=== PATIENT | male | born 1980 | race Two or more races ===

== ENCOUNTER 2024-07-12 12:28 | Emergency (ER) | payer SELFPAY ==
[2024-07-12 12:44] VITALS: BP 134/88; PULSE 64; TEMP 36.8; O2SAT 98; BMI 26.6
--- NOTE | 2024-07-12 12:49 | CT_ITS ---
The [address] [address] Patient Name: ELENA SALAZAR MRN: [id number] date: 1980 Sex: M Assigned Patient Location: ER Current Patient Location: ER Accession/Order Number: [id number] Exam Date: 07/12/2024 13:15 Report Date: 07/12/2024 13:34 At the request of: ELIZABETH COKER Procedure: CT head/brain wo con CT head/brain wo con, CT cervical spine wo con, 07/12/2024 1:15 PM EST INDICATION: neck/head pain COMPARISON: There is no appropriate prior study for comparison. TECHNIQUE: Axial images of 3 mm are obtained from the base of the skull to vertex completed with Axial images of 2 mm are obtained from base of skull to T2 without contrast. Dose reduction techniques were achieved by using automated exposure control and/or adjustment of mA and/or kV according to patient size and/or use of iterative reconstruction technique. FINDINGS: The cerebral and cerebellar sulci as well as ventricular system are appropriate for age. There is no intracranial mass, mass effect, midline shift, intra or extra-axial fluid collection. No acute territorial infarction or hemorrhage is noted. Lacunar infarct versus enlarged perivascular space in the left basal ganglia is noted. The visualized portions of orbits, mastoid air cells as well as paranasal sinuses are unremarkable. There is no suspicious osteolytic or osteoblastic lesion. No acute fracture or dislocation is noted. Mild multilevel degenerative changes of cervical spine are noted. No significant neuroforaminal narrowing or canal stenosis is noted. CT/CT head/brain wo con IMPRESSION: No acute intracranial process is identified. No acute fracture. Mild degenerative changes in the cervical spine with no significant neuroforaminal narrowing or canal stenosis. Electronically authenticated by: YANIRA JACKSON Date: 07/12/2024 13:34
--- NOTE | 2024-07-12 12:57 | CT_ITS ---
The [address] [address] Patient Name: ELENA SALAZAR MRN: [id number] date: 1980 Sex: M Assigned Patient Location: ER Current Patient Location: ER Accession/Order Number: [id number] Exam Date: 07/12/2024 13:15 Report Date: 07/12/2024 13:34 At the request of: ELIZABETH COKER Procedure: CT cervical spine wo con CT head/brain wo con, CT cervical spine wo con, 07/12/2024 1:15 PM EST INDICATION: neck/head pain COMPARISON: There is no appropriate prior study for comparison. TECHNIQUE: Axial images of 3 mm are obtained from the base of the skull to vertex completed with Axial images of 2 mm are obtained from base of skull to T2 without contrast. Dose reduction techniques were achieved by using automated exposure control and/or adjustment of mA and/or kV according to patient size and/or use of iterative reconstruction technique. FINDINGS: The cerebral and cerebellar sulci as well as ventricular system are appropriate for age. There is no intracranial mass, mass effect, midline shift, intra or extra-axial fluid collection. No acute territorial infarction or hemorrhage is noted. Lacunar infarct versus enlarged perivascular space in the left basal ganglia is noted. The visualized portions of orbits, mastoid air cells as well as paranasal sinuses are unremarkable. There is no suspicious osteolytic or osteoblastic lesion. No acute fracture or dislocation is noted. Mild multilevel degenerative changes of cervical spine are noted. No significant neuroforaminal narrowing or canal stenosis is noted. CT/CT cervical spine wo con IMPRESSION: No acute intracranial process is identified. No acute fracture. Mild degenerative changes in the cervical spine with no significant neuroforaminal narrowing or canal stenosis. Electronically authenticated by: YANIRA JACKSON Date: 07/12/2024 13:34
--- NOTE | 2024-07-12 13:30 | ED_ITS ---
HPI HPI - Neck Pain/Injury General Chief Complaint: Neck Pain/Injury Stated Complaint: NECK PAIN Time Seen by Provider: 07/12/24 12:50 Source: patient Mode of arrival: walk-in Limitations: no limitations History of Present Illness HPI Narrative: Patient is a 43-year-old male who presents to the emergency department for 2- week history of pain in the bilateral paracervical area of the neck. Pain radiates up to the back of the head. 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 He has no pain radiation or numbness or tingling to the extremities. He has been using ibuprofen and IcyHot patches without improvement. He has no history of chronic neck pain or other significant medical problems Related Data Previous Rx's ?Medication ?Instructions ?Recorded ketorolac 10 mg tablet 10 mg PO TID PRN pain #10 tabs 07/12/24 methocarbamol 750 mg tablet 750 mg PO TID PRN pain #20 tabs 07/12/24 methylprednisolone 4 mg tablets in See Rx Instructions .Route 07/12/24 a dose pack (Medrol (Nikos)) .COMPLEX #21 ea Allergies Allergy/AdvReac Type Severity Reaction Status Date / Time No Known Drug Allergies Allergy Verified 07/12/24 12:44 Opioid HPI Opioid Management Most Recent Opioid Data: No Data to Display Review of Systems ROS Constitutional Denies: fever or chills Ears, nose, mouth, and throat Reports: neck pain; Denies: throat pain or nasal congestion Respiratory Denies: shortness of breath Gastrointestinal Denies: nausea or vomiting Musculoskeletal Reports: neck pain; Denies: back pain, extremity pain or extremity swelling Integumentary/Breast Denies: rash Neurological Reports: headache; Denies: numbness in extremities or weakness in extremities Hematologic/Lymphatic Denies: easy bruising or easy bleeding Exam Narrative Exam Narrative: Gen.: Awake, alert, in no distress Head: Normocephalic, atraumatic ENT: Moist mucous membranes, diffuse tenderness of the paraspinal area to the bilateral posterior cervical spine with no midline spinal tenderness. No obvious deformity or step-off. No bony tenderness of the thoracic spine. 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 No focal neurodeficit Psych: Normal mood and affect Neuro: No focal neuro deficit Skin: Warm, dry, intact Constitutional Vital Signs, click to edit/add: Last Vital Signs Temp 98.3 F 07/12/24 12:44 Pulse 64 07/12/24 12:44 Resp 18 07/12/24 12:44 BP 134/88 07/12/24 12:44 Pulse Ox 98 07/12/24 12:44 O2 Del Method Room Air 07/12/24 12:44 Course Vital Signs Vital signs: Vital Signs Temperature 98.3 F 07/12/24 12:44 Pulse Rate 64 07/12/24 12:44 Respiratory Rate 18 07/12/24 12:44 Blood Pressure 134/88 07/12/24 12:44 Pulse Oximetry 98 07/12/24 12:44 Oxygen Delivery Method Room Air 07/12/24 12:44 Temperature 98.3 F 07/12/24 12:44 Pulse Rate 64 07/12/24 12:44 Respiratory Rate 18 07/12/24 12:44 Blood Pressure 134/88 07/12/24 12:44 Pulse Oximetry 98 07/12/24 12:44 Oxygen Delivery Method Room Air 07/12/24 12:44 MDM - Neck Pain/Injury MDM Narrative Medical decision making narrative: CT of the brain and CT of the cervical spine were ordered from the lobby by attending physician, the studies show mild degenerative changes of the cervical spine with no acute process in the head or neck. Patient medicated for pain in the ER and will be discharged home with a muscle relaxant, Medrol Dosepak and NSAID. Follow-up with PCP and return to the ER if symptoms change or worsen. Patient is neurovascularly intact with no focal neurodeficits on discharge. SHARED APC VISIT, PHYSICIAN ATTESTATION: [id number] I performed a substantive part of the MDM during the patient?s E/M visit. I personally evaluated and examined the patient. I personally made or approved the documented management plan and acknowledge its risk of complications. Medical Records Attestation: I reviewed the patient's medical records. Imaging Data CT scan - head: Attestation: I have reviewed the pertinent imaging results. Radiologist's impression: ITS Impressions Head CT 07/12/24 12:49 IMPRESSION: No acute intracranial process is identified. No acute fracture. Mild degenerative changes in the cervical spine with no significant neuroforaminal narrowing or canal stenosis. Electronically authenticated by: YANIRA JACKSON Date: 07/12/2024 13:[address] 07/12/24 12:57 IMPRESSION: No acute intracranial process is identified. No acute fracture. Mild degenerative changes in the cervical spine with no significant neuroforaminal narrowing or canal stenosis. Electronically authenticated by: YANIRA JACKSON Date: 07/12/2024 13:34 Discharge Plan Discharge Chief Complaint: Neck Pain/Injury Clinical Impression: Acute neck pain, Cervical strain Patient Disposition: Home, Self-Care Time of Disposition Decision: 13:40 Condition: Good Prescriptions / Home Meds: New ketorolac 10 mg tablet 10 mg PO TID PRN (Reason: pain) Qty: 10 0RF methocarbamol 750 mg tablet 750 mg PO TID PRN (Reason: pain) Qty: 20 0RF methylprednisolone [Medrol (Nikos)] 4 mg tablets,dose pack See Rx Instructions .ROUTE .COMPLEX Qty: 21 0RF Rx Instructions: Taper as directed Print Language: Luxembourgish Instructions: Cervical Strain (ED), Acute Neck Pain (ED) Referrals: Physician,Non-Staff, MD [Primary Care Provider] - 1 week
[2024-07-12] MEDS: ORPHENADRINE 60 MG/ 2 ML VIAL IM (13:36)
[2024-07-12] MEDS: KETOROLAC TROMETHAMINE 60 MG/2 ML VIAL IM (13:36)
[2024-07-12] MEDS: HYDROCODONE/ACET 5-325 MG TABLET 1 TAB PO (13:37)
== END 2024-07-12 13:44 | disposition home or self-care (01) ==
PROVIDERS: Emergency Provider Emergency Medicine
DX: S16.1XXA Strain of muscle, fascia and tendon at neck level, initial encounter (principal); X58.XXXA Exposure to other specified factors, initial encounter; M54.2 Cervicalgia
CPT/HCPCS: 70450; 72125; 96372; 99284; J1885; J2360

== ENCOUNTER 2025-01-18 09:16 | Emergency (ER) | payer OTHER, SELFPAY ==
[2025-01-18 09:21] VITALS: BP 125/73; PULSE 71; TEMP 36.4; O2SAT 97; BMI 29.1
--- OUTSIDE RECORDS SUMMARY | 2025-01-18 09:27 | XMS_ITS | Patient Health Record ---
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 Role Phone LarissailloMinna Unavailable Reason For Referral No Information Medications Medication SIG (Take, Route, Frequency, Duration) Notes Start Date End Date Status Kenalog 40 MG/ML Suspension Injection 09/21/2021 Active Lidocaine HCl 10 mg/mL (1 %) Solution Injection *Pick strength-form from [employer] for eRX* 09/21/2021 Active Lovaza 1 GM Capsule Oral 09/21/2021 Active dexAMETHasone Sodium Phosphate 4 MG/ML Solution Injection 09/21/2021 Active Social History Social History Additional Details Category Social Info Options Details Migrated Social History Migrated Social History Tobacco Years: Current every day smoker 07/06/2021,Smoking Status: 14 07/06/2021 Plan Of Treatment No Information Insurance Providers Payer Name Payer Address Payer Phone Subscriber Number Group Number Insured Name Patient Relationship to Insured Coverage Start Date Coverage End Date Friday Health Plans [place] [address] [place] [phone] [id number] ELENA SALAZAR Self - patient is the insured
--- OUTSIDE RECORDS SUMMARY | 2025-01-18 09:28 | XMS_ITS | CCD ---
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 Name Role Phone Unavailable Primary Care Provider UnavailTIFFANIE Florez Attending Unavailable Bj Evans III Primary Care Physician [phone] NONE, XXXX Primary Care Physician Unavailab Darshan Hood Attending Unavailable Maria Luz Galicia Attending Unavailable Meño Parnell Attending Unavailable Medications Current Medications Medication Drug Class(es) Dates Sig (Normalized) Sig (Original) cyclobenzaprine hydrochloride 10 mg oral tablet (5 sources) Muscle Relaxant Start: 06-26-2022 take 1 tablet by mouth three times daily as needed for muscle spasms cyclobenzaprine 10 mg Tab 10 mg = 1 tab(s), Oral, TID, PRN for spasm, # 30 tab(s), Refills(s) 0, Pharmacy: [facility], 168, cm, 02/18/24 10:40:00 EDT, Height/Length Dosing, 87.5, kg, 02/18/24 10:40:00 EDT, Weight Dosing Start Date: 02/18/24 Status: Ordered ibuprofen 800 mg oral tablet (1 source) Nonsteroidal Anti-inflammatory Drug Start: 12-31-2020 take 1 tablet by mouth every eight hours as needed for pain ibuprofen (ADVIL;MOTRIN) 800 MG tablet Take 1 tablet by mouth every 8 hours as needed for Pain 30 tablet 1 12/31/2020 Active Start: 12-31-2020 take 1 tablet by daina th every eight hours as needed for pain ibuprofen (ADVIL;MOTRIN) 800 MG tablet Take 1 tablet by mouth every 8 hours as needed for Pain 30 tablet 1 12/31/2020 Active methocarbamol 750 mg oral tablet (1 source) Muscle Relaxant Start: 08-26-2023 End: 09-02-2023 take 1 tablet by mouth three times daily Robaxin-750 oral tablet 750 mg = 1 tab(s), Oral, TID, X 7 day(s), # 21 tab(s), Refills(s) 0, Pharmacy: [facility], 167.6, cm, 08/26/23 8:44:00 EDT, Height/Length Dosing, 84.4, kg, 08/26/23 8:44:00 EDT, Weight Dosing Start Date: 08/26/23 Stop Date: 09/02/23 Status: Ordered methylPREDNISolone 4 mg oral tablet (1 source) Corticosteroid Start: 06-26-2022 End: 07-02-2022 Medrol 4 mg Tab = 1 packet(s), Oral, As Directed, as directed on package labeling, X 6 day(s), # 21 tab(s), Refills(s) 0 Start Date: 06/26/22 Stop Date: 07/02/22 Status: Ordered minoxidil 50 mg/ml topical foam (2 sources) Arteriolar Vasodilator Start: 09-15-2023 minoxidil topical 5% foam 1 zee, Topical, BID, 63 gram, Refill(s) 0, [facility], 167.6, cm, 09/15/23 21:06:00 EDT, Height/Length Dosing, 88.4, kg, 09/15/23 21:06:00 EDT, Weight Dosing Start Date: 09/15/23 Status: Ordered Completed/Discontinued Medications Medication Drug Class(es) Dates Sig (Normalized) Sig (Original) dicyclomine hydrochloride 20 mg oral tablet (4 sources) Anticholinergic Start: 06-27-2011 End: 07-04-2011 take 1 tablet by mouth four times daily Bentyl 20 mg Tab 20 mg = 1 tab(s), Oral, QID, # 28 tab(s), Refills(s) 0 Start Date: 06/27/11 Stop Date: 07/04/11 Status: Ordered naproxen 500 mg oral tablet (8 sources) Nonsteroidal Anti-inflammatory Drug Start: 06-26-2022 take 1 tablet by mouth twice daily naproxen 500 mg Tab 500 mg = 1 tab(s), Oral, BID, Take one tab by mouth two times a day, # 14 tab(s), Refills(s) 0, Pharmacy: [facility], 167.6, cm, 08/26/23 8:44:00 EDT, Height/Length Dosing, 84.4, kg, 08/26/23 8:44:00 EDT, Weight Dosing Start Date: 08/26/23 Status: Ordered Problems Problem Classification Problem Date Documented Da te Episodic/Chronic Other screening for suspected conditions (not mental disorders or infectious disease) (4 sources) No current problems or disability 12-02-2013 Episodic Other skin disorders (1 source) Alopecia areata; Translations: [Alopecia areata, unspecified] Onset: 09-15-2023 Episodic Spondylosis; intervertebral disc disorders; other back problems (1 source) Lumbago with sciatica; Translations: [Lumbago with sciatica, unspecified side] Onset: 06-26-2022 Episodic Sprains and strains (3 sources) Sprain of right ankle; Translations: [Sprain of unspecified ligament of right ankle, initial encounter] Onset: 08-26-2023 Episodic Results Test Name Value Interpretation Reference Range Facility ED Note-Physicianon 02-19-20 ED Note-Physician ED Note-Physician Basic Information Time Seen: Josh PARR, Terrance Nelson. 02/18/2024 10:40 Chief Complaint Pt reports right shoulder pain for 2 days. 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 right elbow pain. denies known POLO. A 43-year-old male reports to the emergency department with complaints of right-sided shoulder pain. Reports has been hurting last couple of days. Reports that he is concerned that his may be overuse from using it at work. Reports that she is right-handed. 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 Reports about right knee pain as well. He states that no known injury. Does not take anything except some Bengay, which has helped his symptoms mildly. History of Present Illness Denies any blood thinners. Denies any other injuries. Review of Systems No other aggravating or relieving factors no other associated symptoms no other prior treatments or complaints. Family: Reviewed and noncontributory Social: lives at home Review of systems negative unless otherwise specified in the HPI. Physical Exam Vitals & Measurements T: 37.2 ?C(Oral) HR: 74(Peripheral) RR: 16 BP: 133/94 SpO2: 95% HT: 168 cm WT: 87.5 kg BMI: 31 General: The patient appears well and in no apparent distress. Patient is resting in chair. Afebrile Skin: Warm, dry, no pallor noted. Head: Normocephalic, atraumatic Neck: No JVD Eye: PERRLA, EOMI ENT: Moist mucus membranes Cardiovascular: Regular rate normal peripheral perfusion. Radial pulses +2 bilaterally Respiratory: No respiratory distress no accessory muscle use no obvious audible wheezing Chest Wall: no deformity Musculoskeletal: Limited range of motion of the right shoulder due to the pain. Tenderness to palpation along the posterior aspect, around the trapezius muscle. Positive empty can sign. GI: No obvious distention soft nontender nondistended no guarding rebounding or rigidity Neurological: A&O moves all extremities equal strength and symmetry Psychiatric: Cooperative and appropriate Medical Decision Making MEDICAL DECISION MAKING Number and Complexity of Problems Differential Diagnosis: [] [facility] Data External documents reviewed: [] My EKG interpretation: [] My CT interpretation: [] My X-ray interpretation: reviewed My Ultrasound interpretation: [] Decision rules/scores evaluated: [] Discussed with: [] Treatment and Disposition ED Course: 43-year-old male reports emergency department with chief complaint of right shoulder injury. Reports that he thinks he may be overusing it while at work. Denies any known injury or trauma to this area. Exam of the patient is relatively benign. Does have positive empty can sign as well as tenderness along the trapezius muscle. Obvious deformity otherwise. No tenderness to palpation of the right elbow. Due to concerns we did do x-rays of these areas. X-rays negative for any acute findings. Discussed likely strain to the patient. Patient started on NSAIDs as well as muscle relaxer. Discussed continue to rest, ice, compress, and elevate your affected joint to relieve inflammation and swelling. You may also take ibuprofen and Tylenol to help with pain. Follow-up with your primary care provider in 3 to 5 days. If symptoms worsen, do not improve, or new symptoms arise please report back to emergency department for further evaluation. The patient was understanding and agreeable to plan moving forward. Shared decision making: [] Code status: [] Assessment/Plan Right shoulder strain (S46.911A: Strain of unspecified muscle, fascia and tendon at shoulder and upper arm level, right arm, initial encounter) Orders: cyclobenzaprine, 10 mg = 1 tab(s), Oral, TID, PRN for spasm, # 30 tab(s), Refills(s) 0, Pharmacy: [facility], 168, cm, 02/18/24 10:40:00 EDT, Height/Length Dosing, 87.5, kg, 02/18/24 10:40:00 EDT, Weight Dosing naproxen, 500 mg = 1 tab(s), Oral, BID, PRN Pain, with food, # 20 tab(s), Refills(s) 0, Pharmacy: [facility], 168, cm, 02/18/24 10:40:00 EDT, Height/Length Dosing, 87.5, kg, 02/18/24 10:40:00 EDT, Weight Dosing XR Elbow 3+ Views Right XR Shoulder Complete Right Disposition Plan Patient Discharge Condition Stable Discharge Disposition To home Discharge Prescription List Prescriptions cyclobenzaprine 10 mg Tab, 10 mg= 1 tab(s), Oral, TID, PRN naproxen 500 mg Tab, 500 mg= 1 tab(s), Oral, BID, PRN Follow-up With When Contact Information Rayray Mendez In 3 days 02/21/2024 EDT [address] [place] [address]: Call [address] for diagnosis based follow up Patient Education Shoulder Pain, [id number] Shoulder Range of Motion Exercises Elastic Bandage and RICE Therapy Attestation Patient seen and evaluated by the physician unit assistant. Attending physician was present in the emergency department and supervised care. This visit was performed by both the physician and an APC. I performed all aspects of the MDM as d (more content not included)... Normal [facility] Comment on above: Result Comment: Elec tronically Signed By: Terrance Moreno PA-C.br\Date and Time Signed: 02/18/24 14:28 EDT\.br\Electronically Co-Signed By: Maria Luz Galicia M.D..br\Date and Time Co-Signed: 02/19/24 07:53 EDT ED Clinical Summaryon 2023 ED Clinical Summary ED Clinical Summary [address] [address] ED Clinical Summary Person Information Name: ELENA SALAZAR [place] Age: 43 Years : 1980 Sex: Male Language: Croatian PCP: NONE, XXXX Marital Status: Visit Id: Visit Reason: Elbow pain-swelling; Shoulder pain-swelling; RIGHT SHOULDER/ELBOW PAIN Speciality: Acuity: 4 Enc Type: Emergency Med Service: Emergency Arrival: 02/18/2024 10:35:11 Discharge: 02/18/2024 12:02:30 LOS: 000 01:27 Checkin: 02/18/2024 10:35:11 Checkout: 02/18/2024 12:02:30 Dispo Type: Home (Routine DC) EVENTS: Event Name Event Status Request Date/Time Start Date/Time Complete Date/Time Arrive Complete 02/18/2024 10:35:11 02/18/2024 10:35:11 02/18/2024 10:35:11 Document Home Meds Request 02/18/2024 10:35:11 Triage Complete 02/18/2024 10:35:11 02/18/2024 10:40:07 02/18/2024 10:40:07 Bed Assign Complete 02/18/2024 10:37:25 02/18/2024 10:37:25 02/18/2024 10:37:25 Dr Exam Complete 02/18/2024 10:37:25 02/18/2024 10:40:36 02/18/2024 10:40:36 RN Exam Complete 02/18/2024 10:37:25 02/18/2024 11:11:20 02/18/2024 11:11:20 Registration Complete 02/18/2024 10:39:30 02/18/2024 10:39:30 02/18/2024 10:39:30 Reg Complete Request 02/18/2024 10:39:30 Reg Bed Request Complete 02/18/2024 10:39:30 02/18/2024 10:39:30 02/18/2024 10:39:30 Registration Complete 02/18/2024 10:40:36 02/18/2024 10:58:09 02/18/2024 10:58:09 Dr Exam Complete 02/18/2024 10:42:02 02/18/2024 10:42:02 02/18/2024 10:42:02 X-Ray Complete 02/18/2024 10:56:24 02/18/2024 11:04:58 02/18/2024 11:19:52 Wet Read Request 02/18/2024 11:19:52 Discharge Complete 02/18/2024 11:52:09 02/18/2024 12:05:43 02/18/2024 12:05:43 Transfer Complete 02/18/2024 12:05:43 02/18/2024 12:05:43 02/18/2024 12:05:43 ADDRESS: [address] [place] [address] [address] [place] [phone] PHYS DOC NOTES: MEDICAL INFORMATION: Prescriptions Given: Medications to Continue Taking That Have Changed [facility], [address] [place], [place] [id number], [phone] START: cyclobenzaprine (cyclobenzaprine 10 mg Tab) 1 Tablets By Mouth 3 times a day as needed for spasm. Refills: 0. START: naproxen (naproxen 500 mg Tab) 1 Tablets By Mouth 2 times a day as needed Pain. with food. Refills: 0. Other Medications START: cyclobenzaprine (cyclobenzaprine 10 mg Tab) 1 Tablets By Mouth 3 times a day as needed Muscle pain. Refills: 0. START: naproxen (naproxen 500 mg Tab) 1 Tablets By Mouth 2 times a day. Take one tab by mouth two times a day. Refills: 0. START: naproxen (naproxen 500 mg Tab) 1 Tablets By Mouth 2 times a day as needed for pain. Refills: 0. Medications to Continue with No Changes Other Medications dicyclomine (Bentyl 20 mg Tab) 1 Tablets By Mouth 4 times a day for 7 Days. Refills: 0. minoxidil topical (minoxidil topical 5% foam) 1 Application Topical 2 times a day. Refills: 0. PATIENT EDUCATION INFORMATION: Instructions: Shoulder Pain, [id number]; Shoulder Range of Motion Exercises; Elastic Bandage and RICE Therapy Follow up: With: Address: When: Rayray Mendez [address] [place] [phone] In 3 days 02/21/2024 Comments: Call Dr for diagnosis based follow up DIAGNOSIS: Right shoulder strain Normal [facility] ED Patient Summaryon ED Patient Summary ED Patient Summary [address] [address] Patient Discharge Instructions Person Information Name: ELENA SALAZAR Age: 43 Years Arrival Date: 02/18/2024 10:35:11 Discharge Diagnosis: Right shoulder strain Primary Care Physician: DIANE, XXXX Provider Information Primary Provider: Maria Luz Galicia M.D. Advanced Associate Director Qa:None The exam and treatment you received in the Emergency Department were for an urgent problem and are not intended as complete care. It is important that you follow up with a doctor, nurse practitioner, or physician?s unit assistant for ongoing care. If your symptoms become worse or you do not improve as expected and you are unable to reach your usual health care provider, you should return to the Emergency Department. We are available 24 hours a day. ELENA SALAZAR has been given the following list of patient education materials, prescriptions and follow-up instructions: Follow-up Instructions: With: Address: When: Rayray Mendez [address] [facility] [address] [place] [address] [phone] In 3 days 02/21/2024 Comments: Call Dr for diagnosis based follow up In the event that this physician does not participate in your insurance network, please consult with your insurance company to find a nearby participating provider. Patient Education Materials: Shoulder Pain, Gary-[id number]-[id number]; Shoulder Range of Motion Exercises; Elastic Bandage and RICE Therapy A MESSAGE TO ALL PATIENTS REGARDING OPIOIDS PRESCRIPTION OPIOIDS: WHAT YOU NEED TO KNOW Prescription opioids can be used to help relieve hqvydpps-ip-umzjrc pain and are often prescribed following a surgery or injury, or for certain health conditions. These medications can be an important part of the treatment but also come with serious risks. It is important to work with your healthcare provider to make sure you are getting the safest, most effective care. WHAT ARE THE RISKS AND SIDE EFFECTS OF OPIOID USE? Prescription opioids carry serious risks of addiction and overdose, especially with prolonged use. An opioid overdose, often marked by slowed breathing, can cause sudden . The use of prescription opioids can have a number of side effects as well, even when taken as directed: ? Tolerance?meaning you might need to take more of the medication for the same pain relief ? Physical dependence?meaning you have symptoms of withdrawal when a medication is stopped ? Increased sensitivity to pain ? Constipation ? Nausea, vomiting, and dry mouth ? Sleepiness and dizziness ? Confusion ? Depression ? Low levels of testosterone that can result in lower sex drive, energy, and strength ? Itching and sweating RISKS ARE GREATER WITH: ? History of drug misuse, substance use disorder, or overdose ? Mental health conditions (such as depression or anxiety) ? Sleep apnea ? Older age (65 years and older) ? Avoid alcohol while taking prescription opioids. Also, unless specifically advised by your health care provider, medications to avoid include: ? Benzodiazepines (such as Xanax or Valium) ? Muscle relaxants (such as Soma or Flexeril) ? Hypnotics (such as Ambien or Lunesta) ? Other prescription opioids KNOW YOUR OPTIONS Talk to your health care provider about ways to manage your pain that don?t involve prescription opioids. Some of these options may actually work better and have fewer risks and side effects. Options may include: ? Pain relievers such as acetaminophen, ibuprofen, and naproxen ? Some medication that are also used for depression or seizures ? Physical therapy and exercise ? Cognitive behavioral therapy, a psychological, goal-directed approach, in which patients learn how to modify physical, behavioral, and emotional triggers of pain and stress. IF YOU ARE PRESCRIBED OPIOIDS FOR PAIN: ? Never take opioids in greater amounts or more often than prescribed. ? Follow up with your primary health care provider. o Work together to create a plan on how to manage your pain. o Talk about ways to help manage your pain that don?t involve prescription opioids. o Talk about any and all concerns and side effects. ? Help prevent misuse and abuse o Never sell or share prescription opioids. o Never use another person?s prescription opioids. ? Store prescription opioids in a secure place and out of reach of others (this may include visitors, children, friends, and family). ? Safely dispose of unused prescription opioids: Find your community drug take-back program or your pharmacy mail-back program, or flush them down the toilet, following guidance from the Food and Drug Administration (www.fda.gov/Drugs/Reso Johnu). ? Visit www.cdc.gov/drugoverdos e to learn about the risks of opioids abuse and overdose. ? If you believe you may be struggling with addiction, tell your health care (more content not included)... Normal [facility] XR Elbow 3+ Views Righton XR Elbow 3+ Views Right Exam Date/Time: 02/18/2024 11:19 EDT Reason for Exam: Pain, Non Traumatic Report IMPRESSION: NO DISPLACED FRACTURE OR ACUTE OSSEOUS PROCESS IDENTIFIED. EXAM: XR Elbow 3+ Views Right DATE: 02/18/2024 11:04 AM CLINICAL HISTORY: Pain, Non Traumatic. COMPARISON: None available. TECHNIQUE: AP, lateral, oblique, and olecranon radiographs of the right elbow were obtained. FINDINGS: Mild calcific tendinosis of the triceps tendon is noted. There is no fracture, sizable joint effusion, significant degenerative changes, dislocation, worrisome bone destruction, radiodense foreign bodies, or other findings of concern identified. Ordering Provider: Terrance Moreno FINAL REPORT Dictated: 02/18/2024 1:40 pm Cam Walker MD Signed (Electronic Signature): 02/18/2024 1:40 pm Signed by: Cam Walker MD Transcribed by: GÓMEZ Technologist: MELISSA, Technical Comments Radiation Dose: Kar in mGy = . DAP = . Normal [facility] XR Shoulder Complete Righton 02-18-2024 XR Shoulder Complete Right Exam Date/Time: 02/18/2024 11:19 EDT Reason for Exam: Pain, Non Traumatic Report IMPRESSION: NEGATIVE RIGHT SHOULDER. EXAM: XR Shoulder Complete Right DATE: 02/18/2024 11:04 AM CLINICAL HISTORY: Pain, Non Traumatic. COMPARISON: None available. TECHNIQUE: AP, internal and external rotation AP, transscapular, and axillary radiographs of the right shoulder were obtained. FINDINGS: There is no fracture, dislocation, acromioclavicular joint separation, significant degenerative changes, narrowing of the subacromial space, pathologic calcifications, or other findings of concern identified. Ordering Provider: Terrance Moreno FINAL REPORT Dictated: 02/18/2024 1:23 pm Cam Walker MD Signed (Electronic Signature): 02/18/2024 1:23 pm Signed by: Cam Walker MD Transcribed by: GÓMEZ Technologist: CC, Technical Comments Radiation Dose: Ka,r in mGy = . DAP = . Normal [facility] ED Note-Physicianon 09-16-19 ED Note-Physician Basic Information Time Seen: Terrance Moreno PA-C. 09/15/2023 21:07 Chief Complaint pt presents with c/o headache. pt states they have had issues sleeping lately and is concerned about hair loss on back of head. History of Present Illness 43-year-old male reports to the emergency department chief complaint of headache. He reports that he has had this headache, and is also very concerned that he is losing hair in the back of his head. He reports is not sure was going on. He denies any allergies. Denies taking any medications. Reports is not the worst of his life. Reports been take to work on medication which does help. Denies any fevers or chills. Denies any visual changes. Review of Systems A 10 point review of systems is negative except as noted above. Medical and Surgical History: Reviewed and noted Social history: Lives at home Family History: Reviewed. Tobacco: Denies Physical Exam Vitals & Measurements T: 36.9 ?C(Oral) HR: 80(Peripheral) RR: 18 BP: 139/93 SpO2: 99% HT: 167.6 cm WT: 88.4 kg BMI: 31.47 General: The patient appears well and in no apparent distress. Patient is resting comfortably in chair. afebrile Skin: Warm, dry, no pallor noted. On the back of the head, there is a area of circular pattern baldness, that approximately 1 cm in diameter. Hair follicles are not able to be seen. Head: Normocephalic, atraumatic Neck: No JVD Eye: PERRLA, EOMI ENT: Moist mucus membranes Cardiovascular: Regular rate normal peripheral perfusion Respiratory: No respiratory distress no accessory muscle use no obvious audible wheezing Chest Wall: no deformity Musculoskeletal: normal ROM, no deformity, no swelling GI: No obvious distention Neurological: A&Ox4. moves all extremities equal strength and symmetry. no focal neurological defects Psychiatric: Cooperative and appropriate Medical Decision Making MEDICAL DECISION MAKING Number and Complexity of Problems Differential Diagnosis: [] [facility] Data External documents reviewed: [] My EKG interpretation: [] My CT interpretation: [] My X-ray interpretation: [] My Ultrasound interpretation: [] Decision rules/scores evaluated: [] Discussed with: [] Treatment and Disposition ED Course: 43-year-old male comes in the emergency department with chief complaint of losing hair. On exam, it appears that he does have alopecia. Loss of hair follicles is noted in a circular pattern. Discussed with the patient was understanding. All complaint of a headache. States is not the worst headache of his life. Was gradual in onset. Is been on for a month. I did offer to do a CT of the head, patient denied. I did not appreciate any focal neurological defects. Discussed you are taking Tylenol and rotating ibuprofen for headache. Discussed return precautions. Follow-up with your primary care provider in 3 to 5 days. If symptoms worsen, do not improve, or new symptoms arise please report back to emergency department for further evaluation. The patient was understanding and agreeable to plan moving forward. Shared decision making: [] Code status: [] Assessment/Plan Alopecia areata (L63.9: Alopecia areata, unspecified) Orders: minoxidil topical, 1 zee, Topical, BID, 63 gram, Refill(s) 0, [facility], 167.6, cm, 09/15/23 21:06:00 EDT, Height/Length Dosing, 88.4, kg, 09/15/23 21:06:00 EDT, Weight Dosing Disposition Plan Patient Discharge Condition Stable Discharge Disposition To home Discharge Prescription List Prescriptions minoxidil topical 5% foam, 1 zee, Topical, BID Follow-up With When Contact Information Daksha CAMPOS In 3 days 09/18/2023 EDT [address] [place] [address]- Business (1) Additional Instructions: Call Dr for diagnosis based follow up Patient Education Alopecia Areata, Adult(Salvadorean) Alopecia Areata, Adult Attestation Patient seen and evaluated by the physician unit assistant. Attending physician was present in the emergency department and supervised care. This visit was performed by both the physician and an APC. I performed all aspects of the MDM as documented. This report was transcribed using voice recognition software. Every effort was made to ensure accuracy, however, inadvertently computerized weigh and charge worker mistakes may be present. Appropriate healthcare PPE was used in evaluating this patient. The patient was placed in a mask. The healthcare provider was wearing mask, gloves, and utilizing proper hand hygiene. All equipment was properly cleansed. I performed a substantive part of the MDM during the patient?s E/M visit. I personally made or approved the documented management plan and acknowledge its risk of complications. (Independent Interpretation) My (EKG/X-Ray/US/CT as applicable) interpretation as above. (Discussion) Management/test interpretation discussed with APC. Problem List/Past Medical History Ongoing denies Hist (more content not included)... Normal [facility] Comment on above: Result Comment: Elec tronically Signed By: Terrance Moreno PA-C\.br\Date and Time Signed: 09/16/23 00:06 EDT\.br\Electronically Co-Signed By: Meño Parnell DO\.br\Date and Time Co-Signed: 09/16/23 00:11 EDT Consent for Treatmenton Consent for Treatment [id number] IFF Normal [facility] Discharge Instructionson Discharge Instructions [id number] TIFF Normal [facility] ED Clinical Summaryon 2023 ED Clinical Summary (Inserted Image. Lizzie ble to display) [place] [id number] ED Clinical Summary Person Information Name: SALAZARELENA [place]anne[place] Age: 43 Years : 1980 Sex: Male Language: Croatian PCP: NONE, XXXX Marital Status: Visit Id: Visit Reason: Headache; HEADACHE Speciality: Acuity: 4 Enc Type: Emergency Med Service: Emergency Arrival: 09/15/2023 20:53:29 Discharge: 09/15/2023 21:51:10 LOS: 000 00:58 Checkin: 09/15/2023 20:53:29 Checkout: 09/15/2023 21:51:10 Dispo Type: Home (Routine DC) EVENTS: Event Name Event Status Request Date/Time Start Date/Time Complete Date/Time Arrive Complete 09/15/2023 20:53:29 09/15/2023 20:53:29 09/15/2023 20:53:29 Document Home Meds Request 09/15/2023 20:53:29 Triage Complete 09/15/2023 20:53:29 09/15/2023 21:06:24 09/15/2023 21:06:24 Registration Complete 09/15/2023 20:56:08 09/15/2023 20:56:08 09/15/2023 20:56:08 Reg Complete Request 09/15/2023 20:56:08 Reg Bed Request Complete 09/15/2023 20:56:08 09/15/2023 20:56:08 09/15/2023 20:56:08 Bed Assign Complete 09/15/2023 21:06:35 09/15/2023 21:06:35 09/15/2023 21:06:35 Dr Exam Complete 09/15/2023 21:06:35 09/15/2023 21:07:49 09/15/2023 21:07:49 RN Exam Complete 09/15/2023 21:06:35 09/15/2023 21:29:57 09/15/2023 21:29:57 Registration Request 09/15/2023 21:07:49 Dr Exam Complete 09/15/2023 21:08:35 09/15/2023 21:08:35 09/15/2023 21:08:35 Discharge Complete 09/15/2023 21:39:39 09/15/2023 21:51:17 09/15/2023 21:51:17 Transfer Complete 09/15/2023 21:51:17 09/15/2023 21:51:17 09/15/2023 21:51:17 ADDRESS: [address] [place] [address] RAD[place]O [place] [id number] PHYS DOC NOTES: MEDICAL INFORMATION: Prescriptions Given: New Medications [facility], [address] [facility] [place], [place] [id number], [phone] minoxidil topical (minoxidil topical 5% foam) 1 Application Topical 2 times a day. Refills: 0. Medications to Continue with No Changes Other Medications cyclobenzaprine (cyclobenzaprine 10 mg Tab) 1 Tablets By Mouth 3 times a day as needed Muscle pain. Refills: 0. dicyclomine (Bentyl 20 mg Tab) 1 Tablets By Mouth 4 times a day for 7 Days. Refills: 0. naproxen (naproxen 500 mg Tab) 1 Tablets By Mouth 2 times a day as needed for pain. Refills: 0. naproxen (naproxen 500 mg Tab) 1 Tablets By Mouth 2 times a day. Take one tab by mouth two times a day. Refills: 0. PATIENT EDUCATION INFORMATION: Instructions: Alopecia Areata, Adult(Salvadorean); Alopecia Areata, Adult Follow up: With: Address: When: Daksha BETH [address] [place], [place] [address] [address] Business (1) In 3 days 09/18/2023 Comments: Call Dr for diagnosis based follow up DIAGNOSIS: Alopecia areata Normal [facility] ED Patient Education Noteon 09-15-2023 ED Patient Education Note Immunology Alopecia areata en los adultos Alopecia Areata, Adult La alopecia areata es lizzie afecci?n que provoca la ca?da del pelo. A lizzie persona con esta afecci?n se le puede caer el pelo en zonas del cuero cabelludo. En algunos casos, la persona puede perder todo el pelo del cuero cabelludo o de la dionte y el cuerpo. Tener esta afecci?n puede ser dif?cil emocionalmente, meseret no es peligrosa. La alopecia areata es lizzie enfermedad autoinmunitaria. Bascom significa que el sistema de defensa del organismo (sistema inmunitario) confunde las partes normales del cuerpo con g?rmenes u otras cosas que pueden causarle enfermedades. Cuando tiene alopecia areata, el sistema inmunitario ataca los fol?culos pilosos. ?Cu?les son las causas? Se desconoce la causa de esta afecci?n. ?Qu? incrementa el riesgo? Es m?s probable que tenga esta afecci?n si presenta: ? Antecedentes familiares de alopecia. ? Antecedentes familiares de otra enfermedad autoinmunitaria, incluidas diabetes tipo?1 y lizzie enfermedad autoinmunitaria tiroidea. ? Eczema, asma y alergias. ? S?ndrome de Down. ?Cu?les son los signos o s?ntomas? El s?ntoma principal de esta afecci?n son parches redondos calvos en el cuero cabelludo. Los parches pueden causar lizzie leve picaz?n. Otros s?ntomas pueden incluir los siguientes: ? Pelo oscuro y corto en los parches calvos que es m?s ancho en las puntas (pelo en signo de exclamaci?n). ? Marcas, manchas willy o l?neas en las u?as de los dedos de la mano o del pie. ? Calvicie y p?rdida del vello corporal. Bascom es poco frecuente. La alopecia areata suele manifestarse en la ni?ez, meseret puede ocurrir a cualquier edad. En algunas personas, el pelo vuelve a crecer y no se vuelve a caer. En otros ni?os, el pelo se puede caer y crecer en ciclos. La p?rdida de pelo puede durar varios a?os. ?C?mo se diagnostica? Esta afecci?n se diagnostica en funci?n de los s?ntomas y los antecedentes familiares. El m?dico tambi?n le revisar? la piel del cuero cabelludo, los dientes y las u?as. El m?dico puede derivarlo a un m?dico especialista en enfermedades capilares o de la piel (dermat?logo). Tambi?n pueden hacerle estudios, que incluyen los siguientes: ? Lizzie prueba de tracci?n capilar. ? An?lisis de sandra u otras pruebas de detecci?n para detectar la presencia de enfermedades autoinmunitarias, janusz trastornos de la tiroides o diabetes. ? Biopsia de la piel para confirmar el diagn?stico. ? Un procedimiento para examinar la piel con un instrumento de aumento con stacey (dermatoscopia). ?C?mo se trata? La alopecia areata no tiene tegan. Los objetivos del tratamiento son promover el nuevo crecimiento del pelo y prevenir la reacci?n excesiva del sistema inmunitario. No hay un ?lashell tratamiento para las todas las personas con alopecia areata. Depender? del tipo de ca?da del pelo y de la gravedad. Trabaje con el m?dico para encontrar el tratamiento m?s adecuado para usted. El tratamiento puede incluir: ? Hacer controles des?dicos para asegurarse de que la afecci?n no est? empeorando. A veces, esto se conoce janusz conducta expectante. ? Usar cremas o comprimidos con corticoesteroides shawn 6 a 8?semanas para detener la reacci?n inmunitaria y para que el pelo vuelva a crecer m?s r?pido. ? Usar otros medicamentos en la piel (medicamentos t?picos) para cambiar la respuesta del sistema inmunitario y ayudar al ciclo del crecimiento del pelo. ? Inyecciones de corticoesteroides. ? Psicoterapia y asesoramiento psicol?gico con un mj de apoyo o un terapeuta si tiene dificultades para lidiar con la ca?da del pelo. Siga estas instrucciones en mendoza casa: Medicamentos ? Aplique las cremas t?picas solamente janusz se lo haya indicado el m?dico. ? Use los medicamentos de venta saul y los recetados solamente janusz se lo haya indicado el m?dico. Instrucciones generales ? Inf?rmese todo lo que pueda sobre mendoza enfermedad. ? Considere usar peluca o productos que yarelis que el pelo luzca con m?s volumen o cubra los parches calvos si se siente a disgusto con mendoza aspecto. ? Busque psicoterapia o asesoramiento psicol?gico si le virginia lidiar con la ca?da del pelo. Pida al m?dico que le recomiende un asesor o un mj de apoyo. ? Concurra a todas las visitas de seguimiento janusz se lo haya indicado el m?dico. Bascom es importante. D?nde buscar m?s informaci?n ? National Alopecia Areata Foundation (Fundaci?n Nacional para la Alopecia Areata): naaf.org Comun?quese con un m?dico si: ? La ca?da del pelo empeora, incluso con tratamiento. ? Aparecen nuevos s?ntomas. ? Tiene problemas emocionales. Solicite ayuda de inmediato si: ? Tiene un empeoramiento repentino de la ca?da del pelo. Resumen ? La alopecia areata es lizzie afecci?n autoinmunitaria que hace que el sistema de defensa del organismo (sistema inmunitario) ataque los fol?culos pilosos. Bascom ocasiona la ca?da del pelo. ? Tener esta afecci?n puede ser dif?cil emocionalmente, meseret no es peligro (more content not included)... Normal [facility] ED Patient Summaryon 024 ED Patient Summary (Inserted Image. Lizzie ble to display) [place] [id number] Patient Discharge Instructions Person Information Name: ELENA SALAZAR Age: 43 Years Arrival Date: 09/15/2023 20:53:29 Discharge Diagnosis: Alopecia areata Primary Care Physician: NONE, XXXX Provider Information Primary Provider: Meño Parnell DO Advanced Associate Director Qa:None The exam and treatment you received in the Emergency Department were for an urgent problem and are not intended as complete care. It is important that you follow up with a doctor, nurse practitioner, or physician?s unit assistant for ongoing care. If your symptoms become worse or you do not improve as expected and you are unable to reach your usual health care provider, you should return to the Emergency Department. We are available 24 hours a day. ELENA SALAZAR has been given the following list of patient education materials, prescriptions and follow-up instructions: Follow-up Instructions: With: Address: When: Daksha CAMPOS [address] [place], [place] [address], [place] [id number] [facility] (1) In 3 days 09/18/2023 Comments: Call Dr for diagnosis based follow up In the event that this physician does not participate in your insurance network, please consult with your insurance company to find a nearby participating provider. Patient Education Materials: Alopecia Areata, Adult(Salvadorean); Alopecia Areata, Adult A MESSAGE TO ALL PATIENTS REGARDING OPIOIDS PRESCRIPTION OPIOIDS: WHAT YOU NEED TO KNOW Prescription opioids can be used to help relieve nagqseww-ye-pdonqf pain and are often prescribed following a surgery or injury, or for certain health conditions. These medications can be an important part of the treatment but also come with serious risks. It is important to work with your healthcare provider to make sure you are getting the safest, most effective care. WHAT ARE THE RISKS AND SIDE EFFECTS OF OPIOID USE? Prescription opioids carry serious risks of addiction and overdose, especially with prolonged use. An opioid overdose, often marked by slowed breathing, can cause sudden . The use of prescription opioids can have a number of side effects as well, even when taken as directed: ? Tolerance?meaning you might need to take more of the medication for the same pain relief ? Physical dependence?meaning you have symptoms of withdrawal when a medication is stopped ? Increased sensitivity to pain ? Constipation ? Nausea, vomiting, and dry mouth ? Sleepiness and dizziness ? Confusion ? Depression ? Low levels of testosterone that can result in lower sex drive, energy, and strength ? Itching and sweating RISKS ARE GREATER WITH: ? History of drug misuse, substance use disorder, or overdose ? Mental health conditions (such as depression or anxiety) ? Sleep apnea ? Older age (65 years and older) ? Avoid alcohol while taking prescription opioids. Also, unless specifically advised by your health care provider, medications to avoid include: ? Benzodiazepines (such as Xanax or Valium) ? Muscle relaxants (such as Soma or Flexeril) ? Hypnotics (such as Ambien or Lunesta) ? Other prescription opioids KNOW YOUR OPTIONS Talk to your health care provider about ways to manage your pain that don?t involve prescription opioids. Some of these options may actually work better and have fewer risks and side effects. Options may include: ? Pain relievers such as acetaminophen, ibuprofen, and naproxen ? Some medication that are also used for depression or seizures ? Physical therapy and exercise ? Cognitive behavioral therapy, a psychological, goal-directed approach, in which patients learn how to modify physical, behavioral, and emotional triggers of pain and stress. IF YOU ARE PRESCRIBED OPIOIDS FOR PAIN: ? Never take opioids in greater amounts or more often than prescribed. ? Follow up with your primary health care provider. o Work together to create a plan on how to manage your pain. o Talk about ways to help manage your pain that don?t involve prescription opioids. o Talk about any and all concerns and side effects. ? Help prevent misuse and abuse o Never sell or share prescription opioids. o Never use another person?s prescription opioids. ? Store prescription opioids in a secure place and out of reach of others (this may include visitors, children, friends, and family). ? Safely dispose of unused prescription opioids: Find your community drug take-back program or your pharmacy mail-back program, or flush them down the toilet, following guidance from the Food and Drug Administration (www.fda.gov/Drugs/Reso urcesForYou). ? Visit www.cdc.gov/drugoverdos e to learn about the risks of opioids abuse and overdose. ? If you believe you may be struggling with addiction, tell your health care professiona (more content not included)... [facility] Consent for Treatmenton 08-14 Consent for Treatment [id number] IFF [facility] Discharge Instructionson Discharge Instructions [id number] TIFF [facility] ED Clinical Summaryon 2023 ED Clinical Summary (Inserted Image. Lizzie ble to display) [place] [id number] ED Clinical Summary Person Information Name: ELENA SALAZAR Maryanne/[facility] Age: 42 Years : 1980 Sex: Male Language: Croatian PCP: Bj Evans III, DO Marital Status: Visit Id: Visit Reason: Groin pain; SHARP PAIN ON THE RIGHT SIDE Speciality: Acuity: 4 Enc Type: Emergency Med Service: Emergency Arrival: 08/26/2023 08:36:53 Discharge: 08/26/2023 09:31:31 LOS: 000 00:55 Checkin: 08/26/2023 08:36:53 Checkout: 08/26/2023 09:31:31 Dispo Type: Home (Routine DC) EVENTS: Event Name Event Status Request Date/Time Start Date/Time Complete Date/Time Arrive Complete 08/26/2023 08:36:53 08/26/2023 08:36:53 08/26/2023 08:36:53 Document Home Meds Request 08/26/2023 08:36:53 Triage Complete 08/26/2023 08:36:53 08/26/2023 08:44:17 08/26/2023 08:44:17 Bed Assign Complete 08/26/2023 08:41:30 08/26/2023 08:41:30 08/26/2023 08:41:30 Dr Exam Complete 08/26/2023 08:41:30 08/26/2023 08:43:30 08/26/2023 08:43:30 RN Exam Complete 08/26/2023 08:41:30 08/26/2023 08:45:39 08/26/2023 08:45:39 Registration Complete 08/26/2023 08:41:35 08/26/2023 08:41:35 08/26/2023 08:41:35 Reg Complete Request 08/26/2023 08:41:35 Reg Bed Request Complete 08/26/2023 08:41:35 08/26/2023 08:41:35 08/26/2023 08:41:35 Registration Complete 08/26/2023 08:43:30 08/26/2023 08:45:03 08/26/2023 08:45:03 Dr Exam Complete 08/26/2023 08:54:38 08/26/2023 08:54:38 08/26/2023 08:54:38 Registration Request 08/26/2023 08:54:38 X-Ray Complete 08/26/2023 08:56:10 08/26/2023 08:59:49 08/26/2023 09:11:34 Wet Read Complete 08/26/2023 09:11:34 08/26/2023 09:14:39 08/26/2023 09:14:39 Discharge Complete 08/26/2023 09:23:38 08/26/2023 09:31:37 08/26/2023 09:31:37 Transfer Complete 08/26/2023 09:31:37 08/26/2023 09:31:37 08/26/2023 09:31:37 ADDRESS: [address] [place] [address] RAD[place] [id number] PHYS DOC NOTES: MEDICAL INFORMATION: Prescriptions Given: New Medications [facility] 1985, [address] [facility] [place], [place] [id number], [phone] methocarbamol (Robaxin-750 oral tablet) 1 Tablets By Mouth 3 times a day for 7 Days. Refills: 0. Medications to Continue Taking That Have Changed [facility], [address] [facility] [place], [place] [id number], [phone] START: naproxen (naproxen 500 mg Tab) 1 Tablets By Mouth 2 times a day. Take one tab by mouth two times a day. Refills: 0. Other Medications START: naproxen (naproxen 500 mg Tab) 1 Tablets By Mouth 2 times a day as needed for pain. Refills: 0. Medications to Continue with No Changes Other Medications cyclobenzaprine (cyclobenzaprine 10 mg Tab) 1 Tablets By Mouth 3 times a day as needed Muscle pain. Refills: 0. dicyclomine (Bentyl 20 mg Tab) 1 Tablets By Mouth 4 times a day for 7 Days. Refills: 0. PATIENT EDUCATION INFORMATION: Instructions: Muscle Strain(Salvadorean) Follow up: With: Address: When: Bj Evans [address] [place] [address], [facility], [place] [address] Business (8) In 3 days DIAGNOSIS: Strain of right groin Normal [facility] ED Note-Physicianon 08-26-19 ED Note-Physician Basic Information Time Seen: Darshan Woodson DO 08/26/2023 08:43 Chief Complaint patient c/o right groin pain that started two days when he slipped and fell. denies landing on anything. describes it as pulling pain History of Present Illness 42 year old male presents to the emergency department with chief complaint of right groin pain. Patient reports he slipped and fell on Friday walking out of his trailer. Patient denies hitting head or LOC. Patient reports persistent right groin pain since. He denies any swelling, bulging, or wound to right groin. He denies any trouble with urination or scrotal swelling. He denies any previous injuries to the area. Patient denies any further concerns for today's visit. He thinks he strained his muscle when he fell. No other aggravating or relieving factors no other associated symptoms no other prior treatments or complaints. Family: Reviewed and noncontributory Social: lives at home Review of systems negative unless otherwise specified in the HPI. Physical Exam Vitals & Measurements T: 36.6 ?C(Oral) HR: 76(Peripheral) RR: 18 BP: 117/71 SpO2: 99% HT: 167.64 cm WT: 84.4 kg BMI: 30.03 Nurses notes and vital signs reviewed and patient is not hypoxic. General: The patient appears well. Patient is resting comfortably on the exam bed. Skin: Warm, dry, no pallor noted. No bruising noted. Head: Atraumatic. Neck: No JVD. Eye: Normal conjunctiva. Ears, Nose, Mouth, and Throat: Moist mucous membranes Cardiovascular: Strong distal pulses. Chest wall: Respiratory: Respirations are nonlabored. Back: Normal range of motion. Musculoskeletal: Normal ROM with no gross deformity. Pain on palpation to right upper inner thigh along the musculature no erythema, ecchymosis, or swelling present on exam. Gastrointestinal: Soft and nontender. Urological: No testicular tenderness or mass. Neurological: Awake and alert. No focal deficits. Follows commands. GCS 15. Psychiatric: Cooperative. Medical Decision Making X-rays reveal no obvious fracture or additional pathology. Patient is discharged home on naproxen Robaxin given a note for work and follow-up in the outpatient setting return to ER symptoms should change or worsen. I, Dr. Woodson had a qyyu-tg-xkhd interaction with the patient. I personally performed a physical exam and medical decision making. I have verified the documentation by the student as accurately representing the information obtained. Assessment/Plan Strain of right groin (S76.211A: Strain of adductor muscle, fascia and tendon of right thigh, initial encounter) Orders: methocarbamol, 750 mg = 1 tab(s), Oral, TID, X 7 day(s), # 21 tab(s), Refills(s) 0, Pharmacy: [facility], 167.6, cm, 08/26/23 8:44:00 EDT, Height/Length Dosing, 84.4, kg, 08/26/23 8:44:00 EDT, Weight Dosing naproxen, 500 mg = 1 tab(s), Oral, BID, Take one tab by mouth two times a day, # 14 tab(s), Refills(s) 0, Pharmacy: [facility] 1985, 167.6, cm, 08/26/23 8:44:00 EDT, Height/Length Dosing, 84.4, kg, 08/26/23 8:44:00 EDT, Weight Dosing XR Hip 2-3 Views Right + Pelvis Disposition Plan Discharge Prescription List Prescriptions naproxen 500 mg Tab, 500 mg= 1 tab(s), Oral, BID Robaxin-750 oral tablet, 750 mg= 1 tab(s), Oral, TID Follow-up With When Contact Information Bjrudi Evans In 3 days [address] [facility] [place] [address] [facility] (1) Additional Instructions: Patient Education Muscle Strain(Salvadorean) Problem List/Past Medical History Ongoing denies Historical No qualifying data Medications Inpatient No active inpatient medications Home Bentyl 20 mg Tab, 20 mg= 1 tab(s), Oral, QID cyclobenzaprine 10 mg Tab, 10 mg= 1 tab(s), Oral, TID, PRN naproxen 500 mg Tab, 500 mg= 1 tab(s), Oral, BID, PRN Allergies No Known Allergies Social History Alcohol - Denies Alcohol Use, 06/26/2022 Substance Abuse - Denies Substance Abuse, 06/26/2022 Tobacco - Denies Tobacco Use, 06/26/2022 Lab Results No qualifying data available. Diagnostic Results XR Hip 2-3 Views Right + Pelvis * Preliminary * 08/26/23 09:22:25 NEGATIVE: No infiltrate, mass or other acute cardiopulmonary abnormality Read By: Darshan Woodson DO Normal [facility] Comment on above: Result Comment: Elec tronically Signed By: Darshan Woodson DO\.br\Date and Time Signed: 08/26/23 09:27 EDT ED Patient Education Noteon 08-26-2023 ED Patient Education Note Orthopedics Distensi?n muscular Muscle Strain Lizzie distensi?n muscular es lizzie lesi?n que se produce cuando un m?sculo se estira m?s all? de mendoza dulce normal. Cuando esto sucede, por lo general, se desgarra lizzie henry?a cantidad de fibras musculares. Hay johnson tipos de distensiones musculares. Las distensiones de primer daniel son aquellas en las cuales el desgarro afecta a la maikel cantidad de fibras musculares y las menos dolorosas. Las distensiones de mell y tercer daniel involucran lizzie proporci?n cada vez mayor de desgarro y dolor. En general, la recuperaci?n de lizzie distensi?n muscular tarda de 1 a 2?semanas. La recuperaci?n completa normalmente tarda de 5 a 6?semanas. ?Cu?les son las causas? Esta afecci?n ocurre cuando se aplica lizzie fuerza violenta y s?jessica sobre un m?sculo y harry se estira demasiado. Bascom puede ocurrir shawn lizzie ca?da, cuando se levantan objetos o cuando se practican deportes. ?Qu? incrementa el riesgo? Es m?s probable que esta afecci?n se manifieste en atletas y personas f?sicamente activas. ?Cu?les son los signos o s?ntomas? Los s?ntomas de esta afecci?n incluyen: ? Dolor. ? Sensibilidad. ? Moretones. ? Hinchaz?n. ? Dificultad cuando se usa el m?sculo. ?C?mo se diagnostica? Esta afecci?n se diagnostica en funci?n de un examen f?sico y de los antecedentes m?dicos. Tambi?n se pueden hacer estudios janusz radiograf?a, ecograf?a o resonancia magn?maricarmen (RM). ?C?mo se trata? Inicialmente, se trata con terapia GUILLERMO (protecci?n, reposo, hielo, compresi?n, elevaci?n). Esta terapia incluye lo siguiente: ? Proteger al m?sculo de nuevas lesiones. ? Reposo del m?sculo lesionado. ? Aplicaci?n de hielo en el m?sculo lesionado. ? Aplicaci?n de presi?n (compresi?n) en el m?sculo lesionado. Bascom se puede hacer con lizzie f?lissa o lizzie venda el?stica. ? Elevaci?n del m?sculo lesionado. El m?dico tambi?n puede recomendarle analg?sicos. Siga estas indicaciones en mendoza casa: Si tiene lizzie f?lissa extra?ble: ? Use la f?lissa janusz se lo haya indicado el m?dico. Qu?tesela solamente janusz se lo haya indicado el m?dico. ? Controle todos los d?as la piel alrededor de la f?lissa. Informe al m?dico acerca de cualquier inquietud. ? Afloje la f?lissa si los dedos de las nils o de los pies se le entumecen, siente hormigueos o se le enfr?an y se tornan de color medhat. ? Mantenga la f?lissa limpia. ? Si la f?lissa no es impermeable: ? No deje que se moje. ? C?brala con un envoltorio herm?parisa cuando tome un ba?o de inmersi?n o lizzie ducha. Control del dolor, la rigidez y la hinchaz?n ? Si se lo indican, aplique hielo sobre la tawanda de la lesi?n. Para hacer esto: ? Si tiene lizzie f?lissa desmontable, qu?tesela janusz se lo haya indicado el m?dico. ? Ponga el hielo en lizzie bolsa pl?stica. ? Coloque lizzie toalla entre la piel y la bolsa. ? Aplique el hielo shawn 20?minutos, 2 o 3?veces por d?a. ? Retire el hielo si la piel se pone de color mark brillante. Bascom es muy importante. Si no puede sentir dolor, calor o fr?o, tiene un mayor riesgo de que se da?e la tawanda. ? Mueva los dedos de las nils o de los pies con frecuencia para reducir la rigidez y la hinchaz?n. ? Cuando est? sentado o acostado, alce (eleve) la tawanda de la lesi?n por encima del nivel del coraz?n. ? Use lizzie venda el?stica janusz se lo haya indicado el m?dico. Aseg?rese de no ajustarla demasiado. Indicaciones generales ? Use los medicamentos de venta saul y los recetados solamente janusz se lo haya indicado el m?dico. El tratamiento puede incluir relajantes musculares o medicamentos para el dolor y la inflamaci?n que se maru por boca o que se aplican sobre la piel. ? Restrinja las actividades y andrew reposo del m?sculo lesionado janusz se lo haya indicado el m?dico. Posiblemente le permitan hacer movimientos suaves. ? Si le indicaron fisioterapia, andrew los ejercicios janusz se lo haya indicado el m?dico. ? No ejerza presi?n en ninguna parte de la f?lissa hasta que se haya endurecido por completo. Bascom puede tardar varias horas. ? No consuma brenden?n producto que contenga nicotina o tabaco. Estos productos incluyen cigarrillos, tabaco para mascar y aparatos de vapeo, janusz los cigarrillos electr?nicos. Si necesita ayuda para dejar de consumir estos productos, consulte al m?dico. ? Preg?ntele al m?dico cu?ndo puede volver a conducir si tiene lizzie f?lissa. ? Concurra a todas las visitas de seguimiento. Bascom es importante. ?C?mo se matt? Precaliente antes de la actividad f?gurpreet. Bascom ayuda a prevenir futuras distensiones musculares. Comun?quese con un m?dico si: ? Siente m?s dolor o tiene m?s hinchaz?n en la tawanda lesionada. Solicite ayuda de inmediato si: ? Tiene adormecimiento u hormigueo en la tawanda lesionada. ? Nota lizzie p?rdida importante de fuerza en la tawanda lesionada. Resumen ? Lizzie distensi?n muscular es lizzie lesi?n que se produce cuando un m?sculo se estira m?s all? de mendoza dulce normal. ? Esta afecci?n ocurre cuando se aplica lizzie fuerza (more content not included)... Normal [facility] ED Patient Summaryon 024 ED Patient Summary (Inserted Image. Lizzie ble to display) [place] [id number] Patient Discharge Instructions Person Information Name: ELENA SALAZAR Age: 42 Years Arrival Date: 08/26/2023 08:36:53 Discharge Diagnosis: Strain of right groin Primary Care Physician: Bj Evans III, DO Provider Information Primary Provider: Darshan Woodson DO Advanced Associate Director Qa:None The exam and treatment you received in the Emergency Department were for an urgent problem and are not intended as complete care. It is important that you follow up with a doctor, nurse practitioner, or physician?s unit assistant for ongoing care. If your symptoms become worse or you do not improve as expected and you are unable to reach your usual health care provider, you should return to the Emergency Department. We are available 24 hours a day. SALAZAR ELENA Leslie has been given the following list of patient education materials, prescriptions and follow-up instructions: Follow-up Instructions: With: Address: When: Bj Evans [address] [place] [address], [facility] [place] [address] Business (1) In 3 days In the event that this physician does not participate in your insurance network, please consult with your insurance company to find a nearby participating provider. Patient Education Materials: Muscle Strain(Salvadorean) A MESSAGE TO ALL PATIENTS REGARDING OPIOIDS PRESCRIPTION OPIOIDS: WHAT YOU NEED TO KNOW Prescription opioids can be used to help relieve iqttyuxx-jr-liabmm pain and are often prescribed following a surgery or injury, or for certain health conditions. These medications can be an important part of the treatment but also come with serious risks. It is important to work with your healthcare provider to make sure you are getting the safest, most effective care. WHAT ARE THE RISKS AND SIDE EFFECTS OF OPIOID USE? Prescription opioids carry serious risks of addiction and overdose, especially with prolonged use. An opioid overdose, often marked by slowed breathing, can cause sudden . The use of prescription opioids can have a number of side effects as well, even when taken as directed: ? Tolerance?meaning you might need to take more of the medication for the same pain relief ? Physical dependence?meaning you have symptoms of withdrawal when a medication is stopped ? Increased sensitivity to pain ? Constipation ? Nausea, vomiting, and dry mouth ? Sleepiness and dizziness ? Confusion ? Depression ? Low levels of testosterone that can result in lower sex drive, energy, and strength ? Itching and sweating RISKS ARE GREATER WITH: ? History of drug misuse, substance use disorder, or overdose ? Mental health conditions (such as depression or anxiety) ? Sleep apnea ? Older age (65 years and older) ? Avoid alcohol while taking prescription opioids. Also, unless specifically advised by your health care provider, medications to avoid include: ? Benzodiazepines (such as Xanax or Valium) ? Muscle relaxants (such as Soma or Flexeril) ? Hypnotics (such as Ambien or Lunesta) ? Other prescription opioids KNOW YOUR OPTIONS Talk to your health care provider about ways to manage your pain that don?t involve prescription opioids. Some of these options may actually work better and have fewer risks and side effects. Options may include: ? Pain relievers such as acetaminophen, ibuprofen, and naproxen ? Some medication that are also used for depression or seizures ? Physical therapy and exercise ? Cognitive behavioral therapy, a psychological, goal-directed approach, in which patients learn how to modify physical, behavioral, and emotional triggers of pain and stress. IF YOU ARE PRESCRIBED OPIOIDS FOR PAIN: ? Never take opioids in greater amounts or more often than prescribed. ? Follow up with your primary health care provider. o Work together to create a plan on how to manage your pain. o Talk about ways to help manage your pain that don?t involve prescription opioids. o Talk about any and all concerns and side effects. ? Help prevent misuse and abuse o Never sell or share prescription opioids. o Never use another person?s prescription opioids. ? Store prescription opioids in a secure place and out of reach of others (this may include visitors, children, friends, and family). ? Safely dispose of unused prescription opioids: Find your community drug take-back program or your pharmacy mail-back program, or flush them down the toilet, following guidance from the Food and Drug Administration (www.fda.gov/Drugs/Reso urcesForYou). ? Visit www.cdc.gov/drugoverdos e to learn about the risks of opioids abuse and overdose. ? If you believe you may be struggling with addiction, tell your health care nurse rn and ask for guidance or call [facility] National Helpline at 4-426-246-UCFS. g Source: [place] D (more content not included)... Normal [facility] Prescriptions/Work Noteson 0 08-26-2023 Prescriptions/Work Notes [id number] TIFF Normal [facility] XR Hip 2-3 Views Right + Pel vison 08-26-2023 XR Hip 2-3 Views Right + Pelvis Exam Date/Time: 08/26/2023 09:11 EDT Reason for Exam: Fall Report IMPRESSION: NO DISPLACED FRACTURE OR SIGNIFICANT POSTTRAUMATIC COMPLICATION IDENTIFIED. EXAM: XR Hip 2-3 Views Right + Pelvis DATE: 08/26/2023 8:59 AM CLINICAL HISTORY: Pain after falling a couple of days ago. COMPARISON: None available. TECHNIQUE: An AP view of the pelvis, and AP and lateral radiographs of the right hip were obtained. FINDINGS: There is no displaced fracture, dislocation, pelvic diastases, evidence of significant hematoma, or other acute findings identified. Ordering Provider: Darshan Woodson FINAL REPORT Dictated: 08/26/2023 12:24 pm Cam Walker MD Signed (Electronic Signature): 08/26/2023 12:24 pm Signed by: Cam Walker MD Transcribed by: GÓMEZ Technologist: TUNDE Technical Comments Radiation Dose: Ka,r in mGy = na DAP = na Normal [facility] XR ANKLE RIGHT (MIN 3 VIEWS) on 12-31-2020 XR ANKLE RIGHT (MIN 3 VIEWS) RIGHT ANKLE THREE VIEWS 12/31/2020 COMPARISON: None. HISTORY: Reason for exam:->fall, swollen lateral malleolus. TECHNIQUE: Lateral right ankle pain and swelling status post tripping injury last night. FINDINGS: There is soft tissue swelling at the lateral aspect of the right ankle. No fracture or disruption of the ankle mortise is identified. No osteochondral defect or suspicious osseous lesion. IMPRESSION: Lateral soft tissue swelling. No fracture or disruption of the ankle mortise. Interpreted by: Arthur Montenegro MD Signed by: Arthur Montenegro MD 12/31/20 Final result Normal [facility] Vital Signs Date Time Vital Sign Value Performing Clinician Faci lity 02-18-2024 10:37-0400 Body temperature 98.96 [degF] [facility] 02-18-2024 10:37-0400 Diastolic blood pressure 94 mm[Hg] [facility] 02-18-2024 10:37-0400 Heart rate 74 /min [facility] 02-18-2024 10:37-0400 Respiratory rate 16 /min [facility] 02-18-2024 10:37-0400 SaO2% (BldA) [Mass fraction] 95 % [facility] 02-18-2024 10:37-0400 Systolic blood pressure 133 mm[Hg] [facility] 09-15-2023 21:02-0400 Body temperature 98.42 [degF] Meño Parnell [facility] 09-15-2023 21:02-0400 Diastolic blood pressure 93 mm[Hg] Mayelan Dokken [facility] 09-15-2023 21:02-0400 Heart rate 80 /min Mayelan Dokken [facility] 09-15-2023 21:02-0400 Respiratory rate 18 /min Mayelan Dokken [facility] 09-15-2023 21:02-0400 SaO2% (BldA) [Mass fraction] 99 % Mayelan Dokken [facility] 09-15-2023 21:02-0400 Systolic blood pressure 139 mm[Hg] Mayelan Dokken [facility] 08-26-2023 08:41-0400 Body temperature 97.88 [degF] Darshan Woodson [facility] 08-26-2023 08:41-0400 Diastolic blood pressure 71 mm[Hg] Darshan Woodson [facility] 08-26-2023 08:41-0400 Heart rate 76 /min Darshan Woodson [facility] 08-26-2023 08:41-0400 Respiratory rate 18 /min Darshan Woodson [facility] 08-26-2023 08:41-0400 SaO2% (BldA) [Mass fraction] 99 % Darshan Woodson [facility] 08-26-2023 08:41-0400 Systolic blood pressure 117 mm[Hg] Darshan Billse [facility] 06-26-2022 06:38-0500 Body temperature 97.7 [degF] Blanco Griffith [facility] 06-26-2022 06:38-0500 Diastolic blood pressure 82 mm[Hg] Blanco Griffith [facility] 06-26-2022 06:38-0500 Heart rate 76 /min Blanco Griffith [facility] 06-26-2022 06:38-0500 Respiratory rate 16 /min Blanco Griffith [facility] 06-26-2022 06:38-0500 SaO2% (BldA) [Mass fraction] 98 % Blanco Griffith [facility] 06-26-2022 06:38-0500 Systolic blood pressure 124 mm[Hg] Blanco Griffith [facility] 12-31-2020 10:57-0400 Body height 167.6 cm Tiffanie Miller MD Work Phone: [employer] Work Phone: 12-31-2020 10:57-0400 Body mass index (BMI) [Ratio] 31.23 kg/m2 Tiffanie Miller MD Work Phone: [employer] Work Phone: 12-31-2020 10:57-0400 Body temperature 98.29 [degF] Tiffanie Miller MD Work Phone: [employer] Work Phone: 12-31-2020 10:57-0400 Body weight 87.77 kg Tiffanie Miller MD Work Phone: [employer] Work Phone: 12-31-2020 10:57-0400 Diastolic blood pressure 87 mm[Hg] Tiffanie Miller MD Work Phone: [employer] Work Phone: 12-31-2020 10:57-0400 Heart rate 98 /min Tiffanie Miller MD Work Phone: [employer] Work Phone: 12-31-2020 10:57-0400 Respiratory rate 16 /min Tiffanie Miller MD Work Phone: [employer] Work Phone: 12-31-2020 10:57-0400 SaO2% (BldA) [Mass fraction] 96 % Tiffanie Miller MD Work Phone: [employer] Work Phone: 12-31-2020 10:57-0400 Systolic blood pressure 144 mm[Hg] Tiffanie Miller MD Work Phone: [employer] Work Phone: Encounters Encounter Date Encounter Type Care Provider Facility Start: 02-18-2024 End: 02-18-2024 Emergency department patient visit Karencharmaine Andre Frida [facility] Start: 12-18-2023 ambulatory Darshan Woodson Facility: [facility] Start: 09-15-2023 End: 09-15-2023 Emergency department patient visit Meño Parnell [facility] Start: 08-26-2023 End: 08-26-2023 Emergency department patient visit Darshan Woodson [facility] Start: 06-26-2022 End: 06-26-2022 Emergency department patient visit Blanco Griffith [facility] Start: 12-31-2020 End: 12-31-2020 Emergency department patient visit TIFFANIE MILLER [facility] Start: 12-31-2020 End: 12-31-2020 Emergency department patient visit Tiffanie Miller MD Work Phone: [facility] ED Comment on above: Sprain of right ankl e, unspecified ligament, initial encounter (Primary Dx) Procedures Date Procedure Procedure Detail Performing Clinician Start: 07-18-2021 Radex ankle complete minimum 3 views Tiffanie Miller MD Work Phone: Plan of Treatment Date Care Activity Detail Author Start: 02-14-2021 Influenza vaccination Flu vaccine (# 1) [employer] Phone: Start: 2019 Diabetes screen Diabetes screen [facility] [employer] Phone: Start: 2019 Lipid panel Lipid screen [facility] Work Phone: Start: 08-31-1998 DTaP/Tdap/Td vaccine (1 - Tdap) DTaP/Tdap/Td vaccine (1 - Tdap) [employer] Work Phone: Start: 08-31-1994 HIV screening HIV screen [facility] Work Phone: Start: 1991 COVID-19 Vaccine (1) COVID-19 Vaccin e (1) [employer] Phone: Start: 08-31-1980 Varicella vaccine (1 of 2 - 2-dose childhood series) Varicella vaccine (1 of 2 - 2-dose childhood series) [employer] Phone: Start: 1979 Hepatitis C screening Hepatitis C sc reen [employer] Phone: XR ANKLE RIGHT (MIN 3 VIEWS) XR ANKLE RIGHT (MIN 3 VIEWS) Imaging STAT 12/31/2020 11:43 AM EDT [employer] Work Phone: Payers Date Payer Category Payer Private Health Insurance [id number] 2023 Medicaid [id number] 2023 Self-pay 1980 Unknown [id number] 1979 Unknown [id number] 1979 Unknown [id number] 1979 Unknown [id number] Social History Date Type Detail Facility Start: 12-31-[facility] [employer] Phone: Start: 12-31-2020 Tobacco use and exposure Never used [employer] Start: 12-31-2020 Alcohol intake Lifetime non-d [place] (finding) [employer] Phone: Start: 12-31-2020 History SDOH Alcohol Frequency 1 [employer] Phone: Start: 1980 Sex Assigned At Not on file [facility] [employer] Phone: Exposure to SARS-CoV -2 (event) Not sure [facility] [employer] Tobacco smoking status No Smokin g Status Entered [facility] Sex Assigned At Male [facility] Functional Status Date Assessment Result Facility 02-18-2024 Functional Status N/A [facility] 09-15-2023 Functional Status N/A [facility] 08-26-2023 Functional Status N/A [facility] 06-26-2022 Functional Status N/A [facility] Clinical Notes 06-26-2022 to 02-18-2024 Note Date & Type Note Facility 02-18-2024 Hospital Discharge instructions Patient Education 02/18/2024 12:05:43 Shoulder Pain, Jban-qq-Isnw Shoulder Pain Many things can cause shoulder pain, including: An injury. Moving the shoulder in the same way again and again (overuse). Joint pain (arthritis). Pain can come from: Swelling and irritation (inflammation) of any part of the shoulder. An injury to: ?The shoulder joint. ?Tissues that connect muscle to bone (tendons). ?Tissues that connect bones to each other (ligaments). ?Bones. Follow these instructions at home: Watch for changes in your symptoms. Let your doctor know about them. Follow these instructions to help with your pain. If you have a sling that can be taken off: Wear the sling as told by your doctor. Take it off only as told by your doctor. Check the skin around the sling every day. Tell your doctor if you see problems. Loosen the sling if your fingers: ?Tingle. ?Become numb. ?Become cold. Keep the sling clean. If the sling is not waterproof: ?Do not let it get wet. ?Take the sling off when you shower or bathe. Managing pain, stiffness, and swelling If told, put ice on the painful area. ? Put ice in a plastic bag. ?Place a towel between your skin and the bag. ?Leave the ice on for 20 minutes, 2 3 times a day. Stop putting ice on if it does not help with the pain. ?If your skin turns bright red, take off the ice right away to prevent skin damage. The risk of damage is higher if you cannot feel pain, heat, or cold. Squeeze a soft ball or a foam pad as much as possible. This prevents swelling in the shoulder. It also helps to strengthen the arm. General instructions Take edet-arw-tgvcueq and prescription medicines only as told by your doctor. Keep all follow-up visits. This will help you avoid any type of permanent shoulder problems. Contact a doctor if: Your pain gets worse. Medicine does not help your pain. You have new pain in your arm, hand, or fingers. You loosen your sling and your arm, hand, or fingers: ?Tingle. ?Are numb. ?Are swollen. Get help right away if: Your arm, hand, or fingers turn white or blue. This information is not intended to replace advice given to you by your health care provider. Make sure you discuss any questions you have with your health care provider. Document Revised: 01/03/2023 Document Reviewed: 01/03/2023 [employer] Patient Education 2023 [employer]. 02/18/2024 12:05:43 Shoulder Range of Motion Exercises Shoulder Range of Motion Exercises Shoulder range of motion (ROM) exercises are done to keep the shoulder moving freely or to increase movement. They are recommended for people who have shoulder pain or stiffness or who are recovering from a shoulder surgery. Ask your health care provider which exercises are safe for you. Do exercises exactly as told by your health care provider and adjust them as directed. It is normal to feel mild stretching, pulling, tightness, or discomfort as you do these exercises. Stop right away if you feel sudden pain or your pain gets worse. Do not begin these exercises until told by your health care provider. Phase 1 exercise When you are able, do this exercise 1 2 times a day for 30 60 seconds in each direction, or as directed by your health care provider. Pendulum exercise To do this exercise while sittin.Sit in a chair or at the edge of your bed with your feet flat on the floor. 2.Let your affected arm hang down in front of you over the edge of the bed or chair. 3.Relax your shoulder, arm, and hand. 4.Rock your body so your arm gently swings in small circles. You can also use your unaffected arm to start the motion. 5.Repeat, changing the direction of the circles, swinging your arm left and right, and swinging your arm forward and back. To do this exercise while standin.Stand next to a sturdy chair or table, and hold on to it with your hand on your unaffected side. 2.Bend forward at the waist. 3.Bend your knees slightly. 4.Relax your shoulder, arm, and hand. 5.While keeping your shoulder relaxed, use body motion to swing your arm in small circles. 6.Repeat, changing the direction of the circles, swinging your arm left and right, and swinging your arm forward and back. 7.Between exercises, stand up tall and take a short break to relax your lower back. Phase 2 exercises Do these exercises 1 2 times a day or as told by your health care provider. Hold each stretch for 30 seconds, and repeat 3 times. Do the exercises with one or both arms as instructed by your health care provider. For these exercises, sit at a table with your hand and arm supported by the table. A chair that slides easily or has wheels can be helpful. External rotation 1.Turn your chair so that your affected side is nearest to the table. 2.Place your forearm on the table to your side. Bend your arm to about a 90-degree angle (right angle) at the elbow, and place your hand palm-down on the table. Your elbow should be about 6 inches (15 cm) away from your side. 3.Keeping your arm on the table, lean your body forward. Abduction 1.Turn your chair so that your affected side is nearest to the table. 2.Place your forearm and hand on the table so that your thumb points toward the ceiling and your arm is straight out to your side. 3.Slide your hand out to the side and away from you. 4.To increase the stretch, you can slide your chair away from the table. Flexion: forward stretch 1.Sit facing the table. Place your hand and elbow on the table in front of you. 2.Slide your hand forward and away from you, using your unaffected arm to do the work. 3.To increase the stretch, you can slide your chair backward. Phase 3 exercises Do these exercises 1 2 times a day or as told by your health care provider. Hold each stretch for 30 seconds, and repeat 3 times. Do the exercises with one or both arms as instructed by your health care provider. You will need a cane, a piece of PVC pipe, or a sturdy wooden dowel for the wand exercises. Cross-body stretch: posterior capsule stretch 1.Lift your arm straight out in front of you. 2.Bend your arm in a 90-degree angle (right angle) at the elbow so your forearm moves across your body. 3.Use your other arm to gently pull the elbow across your body, toward your other shoulder. Wall climbs 1.Stand with your affected arm extended out to the side with your hand resting on a door frame. 2.Slide your hand slowly up the door frame. 3.To increase the stretch, step through the door frame. Keep your body upright and do not lean. Flexion To do this exercise while standin.Hold the wand with both of your hands, palms-down. 2.Lift the wand up and over your head, if able. Lift mostly with your affected arm, and use the other arm to help. 3.Push upward with your other arm to gently increase the stretch. To do this exercise while lying down: 1.Lie on your back with your elbows resting on the floor and the wand in both your hands. Your hands will be palm-down, or pointing toward your feet. 2.Lift your hands toward the ceiling, using your unaffected arm to help if needed. 3.Bring your arms overhead as able, using your unaffected arm to help if needed. Internal rotation 1.Stand while holding the wand behind you with both hands. Your unaffected arm should be extended above your head with the arm of the affected side extended behind you at the level of your waist. The wand should be pointing straight up and down as you hold it. 2.Slowly pull the wand up behind your back by straightening the elbow of your unaffected arm and bending the elbow of your affected arm. External rotation 1.Lie on your back with your affected upper arm supported on a small pillow or rolled towel. When you first do this exercise, keep your upper arm close to your body. Over time, bring your arm up to a 90-degree angle (right angle) out to the side. 2.Hold the wand across your stomach and with both hands palm-up. Your elbow on your affected side should be bent at a 90-degree angle. 3.Use your unaffected side to help push your forearm away from you and toward the floor. Keep your elbow on your affected side bent at a 90-degree angle. This information is not intended to replace advice given to you by your health care provider. Make sure you discuss any questions you have with your health care provider. Document Revised: 07/23/2022 Document Reviewed: 07/23/2022 [employer] Patient Education 2023 [employer]. 02/18/2024 12:05:43 Elastic Bandage and RICE Therapy Elastic Bandage and RICE Therapy Elastic bandages come in different shapes and sizes. They generally provide support to your injury and reduce swelling while you are healing, but they can perform different functions. Your health care provider will help you decide what is best for your protection, recovery, or rehabilitation after an injury. The routine care of many injuries includes rest, ice, compression, and elevation (RICE therapy). RICE therapy is often recommended for injuries to soft tissues, such as muscle strain, sprains, bruises, and overuse injuries. It can also be used for some bone injuries. Using RICE therapy can help to relieve pain and lessen swelling. General tips Use the bandage as directed by the maker of the bandage that you are using. Follow instructions on the package that the bandage came in. Do not wrap the bandage too tightly. This may block (cut off) the circulation in the arm or leg in the area below the bandage. ?If part of your body beyond the bandage becomes blue, numb, cold, swollen, or more painful, your bandage is probably too tight. If this occurs, remove your bandage and reapply it more loosely. Remove and reapply an elastic bandage every 3 4 hours or as told by your health care provider. See your health care provider if the bandage seems to be making your problems worse rather than better. Supplies needed: Ice. Plastic bag. Towel. Elastic bandage. Pillow or pillows to raise (elevate) the injured body part. How to care for your injury with RICE therapy Rest Rest your injured area. This may help with the healing process. Rest usually involves limiting your normal activities and not using the injured part of your body. Generally, you can return to your normal activities when your health care provider says it is okay and when you can do them without much discomfort. If you rest the injury too much, it may not heal as well. Some injuries heal better with early movement instead of resting for too long. Talk with your health care provider about how long you should limit your activities and whether you should start yndmx-hy-qoovfy exercises for your injury. Ice If directed, put ice on the injured area. To do this: ?Put ice in a plastic bag. ?Place a towel between your skin and the bag. ?Leave the ice on for 20 minutes, 2 3 times a day. ?Remove the ice if your skin turns bright red. This is very important. If you cannot feel pain, heat, or cold, you have a greater risk of damage to the area. Putting ice on your injury can help to lessen swelling and pain. Do not apply ice directly to your skin. Use ice on as many days as told by your health care provider. Compression Putting pressure (compression) on your injured area with an elastic bandage is part of RICE therapy. Compression can help control swelling, give support, and help with discomfort. Elevation Elevate the injured area above the level of your heart while you are sitting or lying down. Follow these instructions at home: If your symptoms get worse or continue, make a follow-up appointment with your health care provider. Having these problems may mean that you need further evaluation or imaging tests, such as X-rays or an MRI. If you have imaging tests, it is up to you to get the results of your tests. Ask your health care provider, or the department that is doing the tests, when your results will be ready. Return to your normal activities as told by your health care provider. Ask your health care provider what activities are safe for you. Keep all follow-up visits. This is important. Contact a health care provider if: Your pain and swelling continue. Your symptoms are getting worse rather than improving. Get help right away if: You have sudden, severe pain at or below the area of your injury. You have redness or increased swelling around your injury. You have tingling or numbness at or below the area of your injury and it does not improve after you remove the elastic bandage. Summary Elastic bandages provide support to your injury and reduce swelling while you are healing. Your health care provider will help you decide which type of elastic bandage is best for your injury. Do not wrap the bandage too tightly. This may block (cut off) the circulation in the arm or leg in the area below the bandage. Putting pressure (compression) on your injured area with an elastic bandage is part of RICE therapy. RICE therapy includes rest, ice, compression, and elevation. This information is not intended to replace advice given to you by your health care provider. Make sure you discuss any questions you have with your health care provider. Document Revised: 03/22/2021 Document Reviewed: 03/22/2021 [employer] Patient Education 2023 [employer]. Follow Up Care 02/18/2024 10:37:11 With:Rayray Mendez Address: [address] [place] [address] When:02/21/2024 11:52:04 Comments:Call Dr for diagnosis based follow up [facility] 02-18-2024 Note ED Patient Education Note Orthopedics Shoulder Pain Many things can cause shoulder pain, including: ? An injury. ? Moving the shoulder in the same way again and again (overuse). ? Joint pain (arthritis). Pain can come from: ? Swelling and irritation (inflammation) of any part of the shoulder. ? An injury to: ? The shoulder joint. ? Tissues that connect muscle to bone (tendons). ? Tissues that connect bones to each other (ligaments). ? Bones. Follow these instructions at home: Watch for changes in your symptoms. Let your doctor know about them. Follow these instructions to help with your pain. If you have a sling that can be taken off: ? Wear the sling as told by your doctor. Take it off only as told by your doctor. ? Check the skin around the sling every day. Tell your doctor if you see problems. ? Loosen the sling if your fingers: ? Tingle. ? Become numb. ? Become cold. ? Keep the sling clean. ? If the sling is not waterproof: ? Do not let it get wet. ? Take the sling off when you shower or bathe. Managing pain, stiffness, and swelling ? If told, put ice on the painful area. ? Put ice in a plastic bag. ? Place a towel between your skin and the bag. ? Leave the ice on for 20 minutes, 2?3 times a day. Stop putting ice on if it does not help with the pain. ? If your skin turns bright red, take off the ice right away to prevent skin damage. The risk of damage is higher if you cannot feel pain, heat, or cold. ? Squeeze a soft ball or a foam pad as much as possible. This prevents swelling in the shoulder. It also helps to strengthen the arm. General instructions ? Take nron-tlm-immduek and prescription medicines only as told by your doctor. ? Keep all follow-up visits. This will help you avoid any type of permanent shoulder problems. Contact a doctor if: ? Your pain gets worse. ? Medicine does not help your pain. ? You have new pain in your arm, hand, or fingers. ? You loosen your sling and your arm, hand, or fingers: ? Tingle. ? Are numb. ? Are swollen. Get help right away if: ? Your arm, hand, or fingers turn white or blue. This information is not intended to replace advice given to you by your health care provider. Make sure you discuss any questions you have with your health care provider. Document Revised: 01/03/2023 Document Reviewed: 01/03/2023 [employer] Patient Education ? 2023 [employer] Shoulder Range of Motion Exercises Shoulder range of motion (ROM) exercises are done to keep the shoulder moving freely or to increase movement. They are recommended for people who have shoulder pain or stiffness or who are recovering from a shoulder surgery. Ask your health care provider which exercises are safe for you. Do exercises exactly as told by your health care provider and adjust them as directed. It is normal to feel mild stretching, pulling, tightness, or discomfort as you do these exercises. Stop right away if you feel sudden pain or your pain gets worse. Do not begin these exercises until told by your health care provider. Phase 1 exercise When you are able, do this exercise 1?2 times a day for 30?60 seconds in each direction, or as directed by your health care provider. Pendulum exercise To do this exercise while sittin. Sit in a chair or at the edge of your bed with your feet flat on the floor. 2. Let your affected arm hang down in front of you over the edge of the bed or chair. 3. Relax your shoulder, arm, and hand. 4. Rock your body so your arm gently swings in small circles. You can also use your unaffected arm to start the motion. 5. Repeat, changing the direction of the circles, swinging your arm left and right, and swinging your arm forward and back. To do this exercise while standin. Stand next to a sturdy chair or table, and hold on to it with your hand on your unaffected side. 2. Bend forward at the waist. 3. Bend your knees slightly. 4. Relax your shoulder, arm, and hand. 5. While keeping your shoulder relaxed, use body motion to swing your arm in small circles. 6. Repeat, changing the direction of the circles, swinging your arm left and right, and swinging your arm forward and back. 7. Between exercises, stand up tall and take a short break to relax your lower back. Phase 2 exercises Do these exercises 1?2 times a day or as told by your health care provider. Hold each stretch for 30 seconds, and repeat 3 times. Do the exercises with one or both arms as instructed by your health care provider. For these exercises, sit at a table with your hand and arm supported by the table. A chair that slides easily or has wheels can be helpful. External rotation 1. Turn your chair so that your affected side is nearest to the table. 2. Place your forearm on the table to your side. Bend your arm to about a (more content not included)... [facility] 09-15-2023 Hospital Discharge instructions Patient Education 09/15/2023 21:51:17 Alopecia Areata, Adult(Salvadorean) Alopecia areata en los adultos Alopecia Areata, Adult La alopecia areata es lizzie afecci n que provoca la ca da del pelo. A lizzie persona con esta afecci n se le puede caer el pelo en zonas del cuero cabelludo. En algunos casos, la persona puede perder todo el pelo del cuero cabelludo o de la dionte y el cuerpo. Tener esta afecci n puede ser dif cil emocionalmente, meseret no es peligrosa. La alopecia areata es lizzie enfermedad autoinmunitaria. Bascom significa que el sistema de defensa del organismo (sistema inmunitario) confunde las partes normales del cuerpo con g rmenes u otras cosas que pueden causarle enfermedades. Cuando tiene alopecia areata, el sistema inmunitario ataca los fol culos pilosos. Cu les son las causas? Se desconoce la causa de esta afecci n. Qu incrementa el riesgo? Es m s probable que tenga esta afecci n si presenta: Antecedentes familiares de alopecia. Antecedentes familiares de otra enfermedad autoinmunitaria, incluidas diabetes tipo 1 y lizzie enfermedad autoinmunitaria tiroidea. Eczema, asma y alergias. S ndrome de Down. Cu les son los signos o s ntomas? El s ntoma principal de esta afecci n son parches redondos calvos en el cuero cabelludo. Los parches pueden causar lizzie leve picaz n. Otros s ntomas pueden incluir los siguientes: Pelo oscuro y corto en los parches calvos que es m s ancho en las puntas (pelo en signo de exclamaci n). Marcas, manchas willy o l neas en las u as de los dedos de la mano o del pie. Calvicie y p rdida del vello corporal. Bascom es poco frecuente. La alopecia areata suele manifestarse en la ni ez, meseret puede ocurrir a cualquier edad. En algunas personas, el pelo vuelve a crecer y no se vuelve a caer. En otros ni os, el pelo se puede caer y crecer en ciclos. La p rdida de pelo puede durar varios a os. C mo se diagnostica? Esta afecci n se diagnostica en funci n de los s ntomas y los antecedentes familiares. El m dico tambi n le revisar la piel del cuero cabelludo, los dientes y las u as. El m dico puede derivarlo a un m dico especialista en enfermedades capilares o de la piel (dermat logo). Tambi n pueden hacerle estudios, que incluyen los siguientes: Lizzie prueba de tracci n capilar. An lisis de sandra u otras pruebas de detecci n para detectar la presencia de enfermedades autoinmunitarias, janusz trastornos de la tiroides o diabetes. Biopsia de la piel para confirmar el diagn stico. Un procedimiento para examinar la piel con un instrumento de aumento con stacey (dermatoscopia). C mo se trata? La alopecia areata no tiene tegan. Los objetivos del tratamiento son promover el nuevo crecimiento del pelo y prevenir la reacci n excesiva del sistema inmunitario. No hay un lashell tratamiento para las todas las personas con alopecia areata. Depender del tipo de ca da del pelo y de la gravedad. Trabaje con el m dico para encontrar el tratamiento m s adecuado para usted. El tratamiento puede incluir: Hacer controles des dicos para asegurarse de que la afecci n no est empeorando. A veces, esto se conoce janusz conducta expectante. Usar cremas o comprimidos con corticoesteroides shawn 6 a 8 semanas para detener la reacci n inmunitaria y para que el pelo vuelva a crecer m s r pido. Usar otros medicamentos en la piel (medicamentos t picos) para cambiar la respuesta del sistema inmunitario y ayudar al ciclo del crecimiento del pelo. Inyecciones de corticoesteroides. Psicoterapia y asesoramiento psicol gico con un mj de apoyo o un terapeuta si tiene dificultades para lidiar con la ca da del pelo. Siga estas instrucciones en mendoza casa: Medicamentos Aplique las cremas t picas solamente janusz se lo haya indicado el m dico. Use los medicamentos de venta saul y los recetados solamente janusz se lo haya indicado el m dico. Instrucciones generales Inf rmese todo lo que pueda sobre mendoza enfermedad. Considere usar peluca o productos que yarelis que el pelo luzca con m s volumen o cubra los parches calvos si se siente a disgusto con mendoza aspecto. Busque psicoterapia o asesoramiento psicol gico si le virginia lidiar con la ca da del pelo. Pida al m dico que le recomiende un asesor o un mj de apoyo. Concurra a todas las visitas de seguimiento janusz se lo haya indicado el m dico. Bascom es importante. D nde buscar demian s informaci n National Alopecia Areata Foundation (Fundaci n Nacional para la Alopecia Areata): naaf.org Comun quese con un m dico si: La ca da del pelo empeora, incluso con tratamiento. Aparecen nuevos s ntomas. Tiene problemas emocionales. Solicite ayuda de inmediato si: Tiene un empeoramiento repentino de la ca da del pelo. Resumen La alopecia areata es lizzie afecci n autoinmunitaria que hace que el sistema de defensa del organismo (sistema inmunitario) ataque los fol culos pilosos. Bascom ocasiona la ca da del pelo. Tener esta afecci n puede ser dif cil emocionalmente, meseret no es peligrosa. Entre los tratamientos se incluyen controles des dicos para asegurarse de que la afecci n no est empeorando, medicamentos e inyecciones con corticoesteroides. Esta informaci n no tiene janusz fin reemplazar el consejo del m dico. Aseg rese de hacerle al m dico cualquier pregunta que tenga. Document Revised: 09/15/2020 Document Reviewed: 09/15/2020 [employer] Patient Education 2022 [employer]. 09/15/2023 21:51:17 Alopecia Areata, Adult Alopecia Areata, Adult Alopecia areata is a condition that causes hair loss. A person with this condition may lose hair on the scalp in patches. In some cases, a person may lose all the hair on the scalp or all the hair from the face and body. Having this condition can be emotionally difficult, but it is not dangerous. Alopecia areata is an autoimmune disease. This means that your body's defense system (immune system) mistakes normal parts of the body for germs or other things that can make you sick. When you have alopecia areata, the immune system attacks the hair follicles. What are the causes? The cause of this condition is not known. What increases the risk? You are more likely to develop this condition if you have: A family history of alopecia. A family history of another autoimmune disease, including type 1 diabetes and thyroid autoimmune disease. Eczema, asthma, and allergies. Down syndrome. What are the signs or symptoms? The main symptom of this condition is round spots of patchy hair loss on the scalp. The spots may be mildly itchy. Other symptoms include: Short dark hairs in the bald patches that are wider at the top (exclamation point hairs). Dents, white spots, or lines in the fingernails or toenails. Balding and body hair loss. This is rare. Alopecia areata usually develops in childhood, but it can develop at any age. For some people, their hair grows back on its own and hair loss does not happen again. For others, their hair may fall out and grow back in cycles. The hair loss may last many years. How is this diagnosed? This condition is diagnosed based on your symptoms and family history. Your health care provider will also check your scalp skin, teeth, and nails. Your health care provider may refer you to a specialist in hair and skin disorders (geothermal hvac technician). You may also have tests, including: A hair pull test. Blood tests or other screening tests to check for autoimmune diseases, such as thyroid disease or diabetes. Skin biopsy to confirm the diagnosis. A procedure to examine the skin with a lighted magnifying instrument (dermoscopy). How is this treated? There is no cure for alopecia areata. The goals of treatment are to promote the regrowth of hair and prevent the immune system from overreacting. No single treatment is right for all people with alopecia areata. It depends on the type of hair loss you have and how severe it is. Work with your health care provider to find the best treatment for you. Treatment may include: Regular checkups to make sure the condition is not getting worse . This is called watchful waiting. Using steroid creams or pills for 6 8 weeks to stop the immune reaction and help hair to regrow more quickly. Using other medicines on your skin (topical medicines) to change the immune system response and support the hair growth cycle. Steroid injections. Therapy and counseling with a support group or therapist if you are having trouble coping with hair loss. Follow these instructions at home: Medicines Apply topical creams only as told by your health care provider. Take zipe-fcv-mrwfnfy and prescription medicines only as told by your health care provider. General instructions Learn as much as you can about your condition. Consider getting a wig or products to make hair look wilson or to cover bald spots, if you feel uncomfortable with your appearance. Get therapy or counseling if you are having a hard time coping with hair loss. Ask your health care provider to recommend a counselor or support group. Keep all follow-up visits as told by your health care provider. This is important. Where to find more information National Alopecia Areata Foundation: naaf.org Contact a health care provider if: Your hair loss gets worse, even with treatment. You have new symptoms. You are struggling emotionally. Get help right away if: You have a sudden worsening of the hair loss. Summary Alopecia areata is an autoimmune condition that makes your body's defense system (immune system) attack the hair follicles. This causes you to lose hair. Having this condition can be emotionally difficult, but it is not dangerous. Treatments may include regular checkups to make sure that the condition is not getting worse, medicines, and steroid injections. This information is not intended to replace advice given to you by your health care provider. Make sure you discuss any questions you have with your health care provider. Document Revised: 08/15/2020 Document Reviewed: 08/15/2020 [employer] Patient Education 2022 [employer]. Follow Up Care 09/15/2023 20:54:19 With:Daksha CAMPOS Address: [address] [place] [address] [address] [place] [address]- Business (1) When:09/18/2023 21:39:33 Comments:Call Dr for diagnosis based follow up [facility] 08-26-2023 Evaluation + Plan note Extrac jarek from: Title:ED Note Author:Lucinda IRWIN Student, Whitney in C Date:08/26/23 Strain of right groin (S76.2 11A: Strain of adductor muscle, fascia and tendon of right thigh, initial encounter) Orders: methocarbamol, 750 mg = 1 tab(s), Oral, TID, X 7 day(s), # 21 tab(s), Refills(s) 0, Pharmacy: [facility], 167.6, cm, 08/26/23 8:44:00 EDT, Height/Length Dosing, 84.4, kg, 08/26/23 8:44:00 EDT, Weight Dosing naproxen, 500 mg = 1 tab(s), Oral, BID, Take one tab by mouth two times a day, # 14 tab(s), Refills(s) 0, Pharmacy: [facility], 167.6, cm, 08/26/23 8:44:00 EDT, Height/Length Dosing, 84.4, kg, 08/26/23 8:44:00 EDT, Weight Dosing XR Hip 2-3 Views Right + Pelvis [facility]03-12-2024 Hospital Discharge instructions Patient Education 08/26/2023 09:31:38 Muscle Strain(Salvadorean) Distensi n muscular Muscle Strain Lizzie distensi n muscular es lizzie lesi n que se produce cuando un m sculo se estira m s all de mendoza dulce normal. Cuando esto sucede, por lo general, se desgarra lizzie henry a cantidad de fibras musculares.Hay johnson tipos de distensiones musculares. Las distensiones de primer daniel son aquellas en las cuales el desgarro afecta a la maikel cantidad de fibras musculares y las menos dolorosas. Las distensiones de mell y tercer daniel involucran lizzie proporci n cada vez mayor de desgarro y dolor. En general, la recuperaci n de lizzie distensi n muscular tarda de 1 a 2 semanas. La recuperaci n completa normalmente tarda de 5 a 6 semanas. Cu les son las causas? Esta afecci n ocurre cuando se aplica lizzie fuerza violenta y s jessica sobre un m sculo y harry se estira demasiado. Bascom puede ocurrir shawn lizzie ca da, cuando se levantan objetos o cuando se practican deportes. Qu incrementa el riesgo? Es m s probable que esta afecci n se manifieste en atletas y personas f sicamente activas. Cu les son los signos o s ntomas? Los s ntomas de esta afecci n incluyen: Dolor. Sensibilidad. Moretones. Hinchaz n. Dificultad cuando se usa el m sculo. C mo se diagnostica? Esta afecci n se diagnostica en funci n de un examen f sico y de los antecedentes m dicos. Tambi n se pueden hacer estudios janusz radiograf a, ecograf a o resonancia magn maricarmen (RM). C mo se trata? Inicialmente, se trata con terapia GUILLERMO (protecci n, reposo, hielo, compresi n, elevaci n). Esta terapia incluye lo siguiente: Proteger al m sculo de nuevas lesiones. Reposo del m sculo lesionado. Aplicaci n de hielo en el m sculo lesionado. Aplicaci n de presi n (compresi n) en el m sculo lesionado. Bascom se puede hacer con lizzie f lissa o lizzie venda el stica. Elevaci n del m sculo lesionado. El m dico tambi n puede recomendarle analg sicos. Siga estas indicaciones en mendoza casa: Si tiene lizzie f lissa extra ble: Use la f lissa janusz se lo haya indicado el m dico. Qu tesela solamente janusz se lo haya indicado el mdico. Controle todos los d as la piel alrededor de la f lissa. Informe al m dico acerca de cualquier inquietud. Afloje la f lissa si los dedos de las nils o de los pies se le entumecen, siente hormigueos o se leenfr an y se tornan de color medhat. Mantenga la f lissa limpia. Si la f lissa no es impermeable: ?No deje que se moje. ?C brala con un envoltorio herm parisa cuando tome un ba o de inmersi n o lizzie ducha. Control del dolor, la rigidez y la hinchaz n Si se lo indican, aplique hielo sobre la tawanda de la lesi n. Para hacer esto: ?Si tiene lizzie f lissa desmontable, qu tesela janusz se lo haya indicado el m dico. ?Ponga el hielo en lizzie bolsa pl stica. ?Coloque lizzie toalla entre la piel y la bolsa. ?Aplique el hielo shawn 20 minutos, 2 o 3 veces por d a. ?Retire el hielo si la piel se pone de color mark brillante. Bascom es muy importante. Si no puede sentir dolor, calor o fr o, tiene un mayor riesgo de que se da e la tawanda. Mueva los dedos de las nils o de los pies con frecuencia para reducir la rigidez y la hinchaz n. Cuando est sentado o acostado, alce (eleve) la tawanda de la lesi n por encima del nivel del coraz n. Use lizzie venda el stica janusz se lo haya indicado el m dico. Aseg rese de no ajustarla demasiado. Indicaciones generales Use los medicamentos de venta saul y los recetados solamente janusz se lo haya indicado el m dico. El tratamiento puede incluir relajantes musculares o medicamentos para el dolor y la inflamaci n que se maru por boca o que se aplican sobre la piel. Restrinja las actividades y andrew reposo del m sculo lesionado janusz se lo haya indicado el m dico. Posiblemente le permitan hacer movimientos suaves. Si le indicaron fisioterapia, andrew los ejercicios janusz se lo haya indicado el m dico. No ejerza presi n en ninguna parte de la f lissa hasta que se haya endurecido por completo. Bascom puede tardar varias horas. No consuma brenden n producto que contenga nicotina o tabaco. Estos productos incluyen cigarrillos, tabaco para mascar y aparatos de vapeo, janusz los cigarrillos electr nicos. Si necesita ayuda para dejar de consumir estos productos, consulte al m dico. Preg ntele al m dico cu ndo puede volver a conducir si tiene lizzie f lissa. Concurra a todas las visitas de seguimiento. Bascom es importante. C mo se matt? Precaliente antes de la actividad f gurpreet. Bascom ayuda a prevenir futuras distensiones musculares. Comun quese con un m dico si: Siente m s dolor o tiene m s hinchaz n en la tawanda lesionada. Solicite ayuda de inmediato si: Tiene adormecimiento u hormigueo en la tawanda lesionada. Nota lizzie p rdida importante de fuerza en la tawanda lesionada. Resumen Lizzie distensi n muscular es lizzie lesi n que se produce cuando un m sculo se estira m s all de mendoza dulce normal. Esta afecci n ocurre cuando se aplica lizzie fuerza violenta y s jessica sobre un m sculo y harry se estira demasiado. Esta afecci n se trata inicialmente con terapia GUILLERMO, que significa protecci n, reposo, hielo, compresi n y elevaci n. Posiblemente le permitan hacer movimientos suaves. Si le indicaron fisioterapia, andrew los ejercicios janusz se lo haya indicado el m dico. Esta informaci n no tiene janusz fin reemplazar el consejo del m dico. Aseg rese de hacerle al m dicocualquier pregunta que tenga. Document Revised: 09/18/2021 Document Reviewed: 09/18/2021 [employer] Patient Education 2022 [employer]. Follow Up Care 08/26/2023 08:38:52 With:Bj Evans Address: [address] [place] [id number] [address] (1) When:Within 3 Day(s) [facility]01-11-2023 Evaluation + Plan noteExtracted from: Title:ED Note Author:Blanco Griffith DO Date: Acute back pain with sciatic a (M54.40: Lumbago with sciatica, unspecified side) Orders: cyclobenzaprine, 10 mg = 1 tab(s), Oral, TID, PRN Muscle pain, # 15 tab(s), Refills(s) 0 ketorolac, 30 mg = 1 mL, Injection, IntraMuscular, Once, Stop date 06/26/22 7:11:00 EST, STAT, Start date 06/26/22 7:11:00 EST, 06/26/22 7:11:00 EST methylPREDNISolone, = 1 packet(s), Oral, As Directed, as directed on package labeling, X 6 day(s), # 21 tab(s), Refills(s) 0 naproxen, 500 mg = 1 tab(s), Oral, BID, PRN for pain, # 20 tab(s), Refills(s) 0 orphenadrine, 60 mg = 2 mL, Injection, IntraMuscular, Once, Stop date 06/26/22 7:11:00 EST, STAT, Start date 06/26/22 7:11:00 EST, 06/26/22 7:11:[address] Spine Lumbar w/o Contrast [facility]01-11-2023 Hospital Discharge instructions Patient Education 06/26/2022 08:48:56 Back Exercises Back Exercises The following exercises strengthen the muscles that help to support the trunk and back. They also help to keep the lower back flexible. Doing these exercises can help to prevent back pain or lessen existing pain. If you have back pain or discomfort, try doing these exercises 2 3 times each day or as told by your health care provider. As your pain improves, do them once each day, but increase the number of times that you repeat the steps for each exercise (do more repetitions). To prevent the recurrence of back pain, continue to do these exercises once each day or as told by your health care provider. Do exercises exactly as told by your health care provider and adjust them as directed. It is normalto feel mild stretching, pulling, tightness, or discomfort as you do these exercises, but you should stop right away if you feel sudden pain or your pain gets worse. Exercises Single knee to chest Repeat these steps 3 5 times for each le.Lie on your back on a firm bed or the floor with your legs extended. 2.Bring one knee to your chest. Your other leg should stay extended and in contact with the floor. 3.Hold your knee in place by grabbing your knee or thigh with both hands and hold. 4.Pull on your knee until you feel a gentle stretch in your lower back or buttocks. 5.Hold the stretch for 10 30 seconds. 6.Slowly release and straighten your leg. Pelvic tilt Repeat these steps 5 10 times: 1.Lie on your back on a firm bed or the floor with your legs extended. 2.Bend your knees so they are pointing toward the ceiling and your feet are flat on the floor. 3.Tighten your lower abdominal muscles to press your lower back against the floor. This motion willtilt your pelvis so your tailbone points up toward the ceiling instead of pointing to your feet or the floor. 4.With gentle tension and even breathing, hold this position for 5 10 seconds. Cat-cow Repeat these steps until your lower back becomes more flexible: 1.Get into a ocmcy-nhv-dazbq position on a firm surface. Keep your hands under your shoulders, and keep your knees under your hips. You may place padding under your knees for comfort. 2.Let your head hang down toward your chest. Contract your abdominal muscles and point your tailbone toward the floor so your lower back becomes rounded like the back of a cat. 3.Hold this position for 5 seconds. 4.Slowly lift your head, let your abdominal muscles relax and point your tailbone up toward the ceiling so your back forms a sagging arch like the back of a cow. 5.Hold this position for 5 seconds. Press-ups Repeat these steps 5 10 times: 1.Lie on your abdomen (face-down) on the floor. 2.Place your palms near your head, about shoulder-width apart. 3.Keeping your back as relaxed as possible and keeping your hips on the floor, slowly straighten your arms to raise the top half of your body and lift your shoulders. Do not use your back muscles to raise your upper torso. You may adjust the placement of your hands to make yourself more comfortable. 4.Hold this position for 5 seconds while you keep your back relaxed. 5.Slowly return to lying flat on the floor. Bridges Repeat these steps 10 times: 1.Lie on your back on a firm surface. 2.Bend your knees so they are pointing toward the ceiling and your feet are flat on the floor. Yourarms should be flat at your sides, next to your body. 3.Tighten your buttocks muscles and lift your buttocks off the floor until your waist is at almost the same height as your knees. You should feel the muscles working in your buttocks and the back of your thighs. If you do not feel these muscles, slide your feet 1 2 inches farther away from your buttocks. 4.Hold this position for 3 5 seconds. 5.Slowly lower your hips to the starting position, and allow your buttocks muscles to relax completely. If this exercise is too easy, try doing it with your arms crossed over your chest. Abdominal crunches Repeat these steps 5 10 times: 1.Lie on your back on a firm bed or the floor with your legs extended. 2.Bend your knees so they are pointing toward the ceiling and your feet are flat on the floor. 3.Cross your arms over your chest. 4.Tip your chin slightly toward your chest without bending your neck. 5.Tighten your abdominal muscles and slowly raise your trunk (torso) high enough to lift your shoulder blades a tiny bit off the floor. Avoid raising your torso higher than that because it can put too much stress on your low back and does not help to strengthen your abdominal muscles. 6.Slowly return to your starting position. Back lifts Repeat these steps 5 10 times: 1.Lie on your abdomen (face-down) with your arms at your sides, and rest your forehead on the floor. 2.Tighten the muscles in your legs and your buttocks. 3.Slowly lift your chest off the floor while you keep your hips pressed to the floor. Keep the backof your head in line with the curve in your back. Your eyes should be looking at the floor. 4.Hold this position for 3 5 seconds. 5.Slowly return to your starting position. Contact a health care provider if: Your back pain or discomfort gets much worse when you do an exercise. Your worsening back pain or discomfort does not lessen within 2 hours after you exercise. If you have any of these problems, stop doing these exercises right away. Do not do them again unless your health care provider says that you can. Get help right away if: You develop sudden, severe back pain. If this happens, stop doing the exercises right away. Do not do them again unless your health care provider says that you can. This information is not intended to replace advice given to you by your health care provider. Make sure you discuss any questions you have with your health care provider. Document Released: 07/10/2005 Document Revised: 10/07/2019 Document Reviewed: 03/04/2019 [employer] Patient Education 2020 [employer]. 06/26/2022 08:48:56 Acute Pain, Adult Acute Pain, Adult Acute pain is a type of sudden pain that may last for just a few days or for as long as six months.It is often related to an illness, injury, or medical procedure. Acute pain may be mild, moderate, or severe. Pain can make it hard for you to do your normal, daily activities. It can cause anxiety and lead toother problems if it is left untreated. Treatment depends on the cause and severity of your pain. Acute pain usually goes away once your injury has healed or you are no longer ill. Follow these instructions at home: Medicines Take relq-iwh-dcedvbf and prescription medicines only as told by your health care provider. Take the lowest dose of medicine for the shortest amount of time needed to relieve the pain. If you are taking prescription pain medicine: ?Do not stop taking the medicine suddenly. Talk to your health care provider about how and when to discontinue prescription medicine. ?Do not take more pills than told by your health care provider even if your pain is severe. ?Do not take other jwdw-xmq-fysylqr pain medicines in addition to prescription pain medicine unlesstold by your health care provider. ?Ask your health care provider if the medicine requires you to avoid driving or using heavy machinery. ?Ask your health care provider if the medicine can cause constipation. You may need to take these actions to prevent or treat constipation: ?Drink enough fluid to keep your urine pale yellow. ?Eat foods that are high in fiber, such as beans, whole grains, and fresh fruits and vegetables. ?Take dlkv-gnb-srnpggb or prescription medicines. ?Limit foods that are high in fat and processed sugars, such as fried or sweet foods. Managing pain, stiffness, and swelling If directed, put ice on the affected area. To do this: Put ice in a plastic bag. Place a towel between your skin and the bag. Leave the ice on for 20 minutes, 2 3 times a day. If directed, apply heat to the affected area as often as told by your health care provider. Use theheat source that your health care provider recommends, such as a moist heat pack or a heating pad. Place a towel between your skin and the heat source. Leave the heat on for 20 30 minutes. Remove the heat if your skin turns bright red. This is especially important if you are unable to feel pain, heat, or cold. You may have a greater risk of getting burned. Activity Rest as told by your health care provider. Return to your normal activities as told by your health care provider. Ask your health care provider what activities are safe for you. General instructions Check your pain level as told by your health care provider. Ask your health care provider if other strategies such as distraction, relaxation, or physical therapies can help your pain. Keep all follow-up visits as told by your health care provider. This is important. Contact a health care provider if: Your pain is not controlled by medicine. Your pain does not improve or gets worse. You have side effects from pain medicines, such as vomiting or confusion. Get help right away if you: Have severe pain. Have trouble breathing. Lose consciousness. Have chest pain or pressure that lasts for more than a few minutes, or if you have other symptoms along with chest pain, including if you: ?Have pain or discomfort in one or both arms, your back, neck, jaw, or stomach. ?Have shortness of breath. ?Break out in a cold sweat. ?Feel nauseous. ?Become light-headed. These symptoms may represent a serious problem that is an emergency. Do not wait to see if the symptoms will go away. Get medical help right away. Call your local emergency services (911 in the [place] Do not drive yourself to the hospital. Summary Acute pain may be mild, moderate, or severe. It usually goes away once your injury has healed or you are no longer ill. Take qogv-qpy-vzoeezm and prescription medicines only as told by your health care provider. Ask your health care provider if the medicine prescribed to you can cause constipation. Contact a health care provider if your pain is not controlled by medicine. This information is not intended to replace advice given to you by your health care provider. Make sure you discuss any questions you have with your health care provider. Document Released: 06/16/2016 Document Revised: 10/18/2019 Document Reviewed: 10/18/2019 [employer] Patient Education 2020 [employer] Follow Up Care 06/26/2022 06:33:17 With:Bj Evans Address: [address] [place] [address], [facility] [place] [place] [address]- [facility] (1) When:06/29/2022 08:47:45 Comments:Call the office of your primary care doctor to arrange for follow-up within the above-stated timeframe. Follow-up with your primary care doctor about this ED visit. You should review your labs, imaging, and diagnoses from this ED visit with your primary care physician. If you were prescribed medications you should discuss possible side-effects and drug interactions with your pharmacist. Call 911 or go to the nearest Emergency Department if you develop any new or worsening symptoms.Seek immediate medical attention if you develop: increasing pain, numbness, tingling, weakness, loss of motion inyour arms or legs, loss of control of your urine or stool, fever, abdominal pain, chest pain, shortness of breath, or any new or worsening symptoms. [facility] noteExtracted from: Title:ED Note Author:Terrance Moreno PA-C te:09/16/23 Alopecia areata (L63.9: Alop ecia areata, unspecified) Orders: minoxidil topical, 1 zee, Topical, BID, 63 gram, Refill(s) 0, [facility] 1986, 167.6, cm, 09/15/23 21:06:00 EDT, Height/Length Dosing, 88.4, kg, 09/15/23 21:06:00 EDT, Weight Dosing [facility] Diagnosis Sprain of right ankle, unspecified ligament, initial encounter- Primary documented in this encounter Inside Secure Phone: Hospital course Narrative No data available for this section [facility]* Attachments The following attachments cannot be sent through Care Everywhere. * Ankle Sprain (Croatian) * RICE: General Info (Croatian) documented in this encounterInside Secure Phone: progress note No data available for this section [facility] Summary Purpose Family History No Family History Records Found No data available for this section No data available for this section No data available for this section No Family History Records Found Advance Directives No Advanced Directives Records FoundNo Advanced Directives Records Found Additional Source Comments Reason for Visit (unrecogniz ed section and content) Reason Comments Joint Swelling tripped going down 2 steps last night Ordered Prescriptions (unrec ognized section and content) Prescription Sig Dispensed Refills Start Date End Da te ibuprofen (ADVIL;MOTRIN) 800 MG tablet Take 1 tablet by mouth every 8 hours as needed for Pain 30 tablet 1 12/31/2020 (unrecognized sect ion and content) No Status Records FoundNo Status Records Found INFORMATION SOURCE (unrecogn ized section and content) DATE CREATED AUTHOR 12/31/2020 [facility] DATE CREATED AUTHOR AUTHOR'S ORGANIZ ATION 02/23/2024 [facility] [employer] [facility] Patient Care team informatio n (unrecognized section and content) Personnel Name: Bj Evans III, DO Address: Address: [address] [place] [address] Personnel Name: Nathan ENG DO [facility] Address: Address: [address] [place] [address] Personnel Name: NONE, XXXX Address: Address: [facility] Personnel Name: NONE, XXXX Address: Address: [facility] FOR RECORDS PERTAINING TO PATIENTS WHO ARE OR HAVE BEEN ENROLLED IN A CHEMICAL DEPENDENCY/SUBSTANCEABUSE PROGRAM, SOME INFORMATION MAY BE OMITTED. This clinical summary was aggregated from multiple sources. Caution should be exercised in using it in the provision of clinical care. This summary normalizes information from multiple sources, and as a consequence, information in this document may materially change the coding, format and clinical context of patient data. In addition, data may be omitted in some cases. CLINICAL DECISIONS SHOULD BE BASED ON THE PRIMARY CLINICAL RECORDS. [facility] [employer] provides no warranty or guarantee of the accuracy or completeness of information in this document.
[2025-01-18 09:57] VITALS: O2SAT 98
[2025-01-18 10:02] LABS: Hematocrit 41.8 % (42.0-54.0); Hemoglobin 14.1 g/dL (14.0-18.0); Immature Granulocytes Abs Auto 0.04 10^3/uL (0.00-0.03); Immature Granulocytes Pct Auto 0.5 % (0.0-0.5); Lymphocytes Absolute Auto 2.6 10^3/uL (1.2-3.8); Mean Corpuscular HGB Conc 33.7 g/dL (29.9-35.2); Mean Corpuscular Hemoglobin 29.7 pg (25.9-34.0); Mean Corpuscular Volume 88.2 fL (80.0-94.0); Platelet Count 272 10^3/uL (150-450); Red Blood Count 4.74 10^6/uL (4.70-6.10); White Blood Count 8.6 10^3/uL (4.0-11.0)
[2025-01-18 10:18] LABS: Alanine Aminotransferase 36 U/L (16-63); Albumin Globulin Ratio 0.9; Albumin Level 3.3 g/dL (3.4-5.0); Alkaline Phosphatase 79 U/L (46-116); Anion Gap 10.2; Aspartate Amino Transferase 14 U/L (15-37); Blood Urea Nitrogen 23.0 mg/dL (7.0-18.0); Calcium 8.9 mg/dL (8.5-10.1); Carbon Dioxide 27.6 mmol/L (21.0-32.0); Chloride 106 mmol/L (98-107); Estimated GFR (African America >60 (>=60 mL/min/1.73m^2); Estimated GFR (Non-African Ame >60 (>=60 mL/min/1.73m^2); Globulin 3.7 g/dL; Glucose 117 mg/dL (74-106); Potassium 3.8 mmol/L (3.5-5.1); Sodium 140 mmol/L (136-145); Total Protein 7.0 g/dL (6.4-8.2)
[2025-01-18 10:24] LABS: Iron 43.0 ug/dL (65.0-175.0); Percent Iron Saturation 14.9 %; Total Iron Binding Capacity 288.0 ug/dL (250.0-450.0)
--- NOTE | 2025-01-18 10:27 | ED.EXTPRO1 ---
HPI - Extremity Problem General Chief complaint: Extremity Problem, Nontraumatic Stated complaint: TROUBLES FALLING ASLEEP Time Seen by Provider: 01/18/25 09:35 Source: patient Mode of arrival: walk-in Limitations: no limitations History of Present Illness HPI Narrative: The patient presented to us with at least few weeks history of lower extremity restless leg feeling, the patient denies any complain he usually works at night and sleeps during the day he denies any other concerns Related Data Previous Rx's ?Medication ?Instructions ?Recorded ferrous sulfate 325 mg (65 mg 325 mg PO DAILY #20 tabs 01/18/25 iron) tablet Allergies Allergy/AdvReac Type Severity Reaction Status Date / Time No Known Drug Allergies Allergy Verified 07/12/24 12:44 Review of Systems ROS Status of ROS 10 or more systems reviewed and unremarkable except as noted in history and below PFSH PFS Social History Little interest or pleasure in doing things: not at all Feeling down, depressed, or hopeless: not at all Exam Narrative Exam Narrative: Nurses notes and vital signs reviewed and patient is not hypoxic. General: Well-appearing and in no apparent distress. Skin: Warm, dry, no pallor noted. No rash. Head: Normocephalic, atraumatic. Neck: Supple, non-tender. Eye: Pupils are equal, round and EOMI. No scleral icterus. Ears, Nose, Mouth, and Throat: TM are clear, no nasal mucosal hypertrophy. Oral mucosa is moist, no posterior oropharynx erythema, uvula is mid-line Cardiovascular: Regular Rate and Rhythm without murmur, gallop or rub. Respiratory: No accessory muscle use or respiratory distress. Lungs are clear to auscultation, no wheezing, rales or rhonchi Chest Wall: no tenderness Back: No midline thoracic or lumbar vertebral tenderness. No CVA tenderness Musculoskeletal: normal ROM, no calf or popliteal tenderness, no lower extremity edema/swelling GI: Abdomen is soft, non-distended. Normal bowel sounds. No masses appreciated. No tenderness to palpation. No rebound, guarding, or rigidity noted. Neurological: A&O x4. No cranial nerve dysfunction observed. No truncal ataxia. Moves all extremities. Sensation intact. Psychiatric: Cooperative and interactive. Normal mood and affect. Constitutional Vital Signs, click to edit/add: Last Vital Signs Temp 97.6 F 01/18/25 09:21 Pulse 71 01/18/25 09:21 Resp 18 01/18/25 09:21 BP 125/73 01/18/25 09:21 Pulse Ox 98 01/18/25 09:57 O2 Del Method Room Air 01/18/25 09:57 Course Vital Signs Vital signs: Vital Signs Temperature 97.6 F 01/18/25 09:21 Pulse Rate 71 01/18/25 09:21 Respiratory Rate 18 01/18/25 09:21 Blood Pressure 125/73 01/18/25 09:21 Pulse Oximetry 97 01/18/25 09:21 Oxygen Delivery Method Room Air 01/18/25 09:21 Temperature 97.6 F 01/18/25 09:21 Pulse Rate 71 01/18/25 09:21 Respiratory Rate 18 01/18/25 09:21 Blood Pressure 125/73 01/18/25 09:21 Pulse Oximetry 98 01/18/25 09:57 Oxygen Delivery Method Room Air 01/18/25 09:57 MDM - Extremity (Nontraumatic) MDM Narrative Medical decision making narrative: The patient presentation could be secondary to restless leg syndrome I did explain to him that right now although his hemoglobin is normal but his iron serum level is low and he was started on iron supplement Patient referred to primary care and outpatient The patient is to follow up with primary care physician in next 2-3 days or to return to the emergency department should any of the signs or symptoms worsen or new symptoms develop. The patient agrees with the following Diagnosis and Treatment plan and the patient will be discharged home. Lab Data Labs: Lab Results 01/18/25 Range/Units 09:53 WBC 8.6 (4.0-11.0) 10^3/uL RBC 4.74 (4.70-6.10) 10^6/uL Hgb 14.1 (14.0-18.0) g/dL Hct 41.8 L (42.0-54.0) % MCV 88.2 (80.0-94.0) fL MCH 29.7 (25.9-34.0) pg MCHC 33.7 (29.9-35.2) g/dL RDW 12.8 (11.0-15.0) % Plt Count 272 (150-450) 10^3/uL MPV 9.7 (9.5-13.5) fL Neut % (Auto) 55.4 (43.0-75.0) % Lymph % (Auto) 30.2 (20.5-60.0) % [place]ster % (Auto) 8.4 (1.7-12.0) % Eos % (Auto) 4.8 (0.9-7.0) % Baso % (Auto) 0.7 (0.2-2.0) % Neut # (Auto) 4.8 (1.4-6.5) 10^3/uL Lymph # (Auto) 2.6 (1.2-3.8) 10^3/uL Ulster # (Auto) 0.7 (0.3-0.8) 10^3/uL Eos # (Auto) 0.4 (0.0-0.7) 10^3/uL Baso # (Auto) 0.1 (0.0-0.1) 10^3/uL Abs Immat Gran (auto) 0.04 H (0.00-0.03) 10^3/uL Imm/Tot Granulo (auto) 0.5 (0.0-0.5) % Sodium 140 (136-145) mmol/L Potassium 3.8 (3.5-5.1) mmol/L Chloride 106 (98-107) mmol/L Carbon Dioxide 27.6 (21.0-32.0) mmol/L Anion Gap 10.2 BUN 23.0 H (7.0-18.0) mg/dL Creatinine 0.71 (0.70-1.30) mg/dL Est GFR ( Amer) >60 (>=60 mL/min/1.73m^2) Est GFR (Non-Af Amer) >60 (>=60 mL/min/1.73m^2) BUN/Creatinine Ratio 32.4 Glucose 117 H (74-106) mg/dL Calcium 8.9 (8.5-10.1) mg/dL Iron 43.0 L (65.0-175.0) ug/dL TIBC 288.0 (250.0-450.0) ug/dL % Saturation 14.9 % Ferritin 48.0 (26.0-388.0) ng/mL Total Bilirubin 0.2 (0.2-1.0) mg/dL AST 14 L (15-37) U/L ALT 36 (16-63) U/L Alkaline Phosphatase 79 (46-116) U/L Total Protein 7.0 (6.4-8.2) g/dL Albumin 3.3 L (3.4-5.0) g/dL Globulin 3.7 g/dL Albumin/Globulin Ratio 0.9 Discharge Plan Discharge Chief Complaint: Extremity Problem, Nontraumatic Clinical Impression: Restless leg, Iron deficiency Patient Disposition: Home, Self-Care Time of Disposition Decision: 10:27 Condition: Good Prescriptions / Home Meds: New ferrous sulfate 325 mg (65 mg iron) tablet 325 mg PO DAILY Qty: 20 0RF Print Language: Kinyarwanda Instructions: Iron Rich Diet (ED), Restless Legs Syndrome (ED) Referrals: Physician,Non-Staff, MD [Primary Care Provider] - 1 week Discharge Date/Time: 01/18/25 10:50
[2025-01-18 10:38] LABS: Ferritin 48.0 ng/mL (26.0-388.0)
== END 2025-01-18 10:50 | disposition home or self-care (01) ==
PROVIDERS: Emergency Provider Emergency Medicine
DX: G25.81 Restless legs syndrome (principal); E61.1 Iron deficiency
CPT/HCPCS: 36415; 80053; 82728; 83540; 83550; 85025; 99283

== ENCOUNTER 2025-04-11 10:35 | Emergency (ER) | payer SELFPAY ==
[2025-04-11 10:42] VITALS: BP 117/78; PULSE 74; TEMP 36.6; O2SAT 98; BMI 29.1
--- NOTE | 2025-04-11 11:06 | ED_ITS ---
HPI HPI - General Adult General Chief complaint: Extremity Problem, Nontraumatic Stated complaint: BILATERAL LEG RESTLESSNESS Time Seen by Provider: 04/11/25 10:54 Source: patient Mode of arrival: walk-in History of Present Illness HPI narrative: The patient is a 44 years old male presenting to the ER complaining of restless leg syndrome, he mentioned that he feels that his leg moving whenever he tried to sleep, he denies any fall or any other concern he mentioned that he was evaluated for this almost few months ago Related Data Previous Rx's ?Medication ?Instructions ?Recorded ferrous sulfate 325 mg (65 mg 325 mg PO DAILY #20 tabs 01/18/25 iron) tablet Allergies Allergy/AdvReac Type Severity Reaction Status Date / Time No Known Drug Allergies Allergy Verified 04/11/25 10:42 Review of Systems ROS Status of ROS 10 or more systems reviewed and unremark able except as noted in history and below [facility] Social History Little interest or pleasure in doing things: not at all Feeling down, depressed, or hopeless: not at all Exam Narrative Exam Narrative: Nurses notes and vital signs reviewed and patient is not hypoxic. General: Well-appearing and in no apparent distress. Skin: Warm, dry, no pallor noted. No rash. Head: Normocephalic, atraumatic. Neck: Supple, non-tender. Cardiovascular: Regular Rate and Rhythm without murmur, gallop or rub. Respiratory: No accessory muscle use or respiratory distress. Back: No midline thoracic or lumbar vertebral tenderness. No CVA tenderness Musculoskeletal: normal ROM, no calf or popliteal tenderness, no lower extremity edema/swelling GI: Abdomen is soft, non-distended. Normal bowel sounds. No masses appreciated. No tenderness to palpation. No rebound, guarding, or rigidity noted. Neurological: A&O x4. No cranial nerve dysfunction observed. No truncal ataxia. Moves all extremities. Sensation intact. Psychiatric: Cooperative and interactive. Normal mood and affect. Constitutional Vital Signs, click to edit/add: Last Vital Signs Temp 97.8 F 04/11/25 10:42 Pulse 74 04/11/25 10:42 Resp 16 04/11/25 10:42 BP 117/78 04/11/25 10:42 Pulse Ox 98 04/11/25 10:42 O2 Del Method Room Air 04/11/25 10:42 Course Vital Signs Vital signs: Vital Signs Temperature 97.8 F 04/11/25 10:42 Pulse Rate 74 04/11/25 10:42 Respiratory Rate 16 04/11/25 10:42 Blood Pressure 117/78 04/11/25 10:42 Pulse Oximetry 98 04/11/25 10:42 Oxygen Delivery Method Room Air 04/11/25 10:42 Temperature 97.8 F 04/11/25 10:42 Pulse Rate 74 04/11/25 10:42 Respiratory Rate 16 04/11/25 10:42 Blood Pressure 117/78 04/11/25 10:42 Pulse Oximetry 98 04/11/25 10:42 Oxygen Delivery Method Room Air 04/11/25 10:42 Medical Decision Making MDM Narrative Medical decision making narrative: The patient presented to us with a restless leg syndrome the patient was evaluated for something similar almost 2 months ago when he was provided with some iron that he took and stopped taking right now, the patient instructed that he need to follow-up with the primary care for further evaluation as he is suffering from a chronic condition And from the ER standpoint there is no infection or any signs of inflammation that require any further treatment at the moment Patient referred to the outpatient primary care The patient to follow-up with the primary care within 2 to 3 days and to come back to the ER in case of any worsening of the current symptoms or any new symptoms or concerns Discharge Plan Discharge Chief Complaint: Extremity Problem, Nontraumatic Clinical Impression: Restless leg syndrome Patient Disposition: Home, Self-Care Time of Disposition Decision: 11:06 Condition: Good Prescriptions / Home Meds: No Action ferrous sulfate 325 mg (65 mg iron) tablet 325 mg PO DAILY Qty: 20 0RF Print Language: Icelandic Instructions: Restless Legs Syndrome (ED) Referrals: Physician,Non-Staff, MD [Primary Care Provider] - 1 week
--- OUTSIDE RECORDS SUMMARY | 2025-04-11 11:24 | XMS_ITS | Patient Health Record ---
Author Organization [facility] Address [address] [place] [address] Care Team Providers Care Community Midwife Name Role Phone Minna Hemphill Unavailable [phone] Reason For Referral No Information Medications Medication SIG (Take, Route, Frequency, Duration) Notes Start Date End Date Status Kenalog 40 MG/ML Suspension Injection 09/21/2021ctiveLidocaine HCl 10 mg/mL (1 %) SolutionInjection*Pick strength- form from [employer] for eRX*2ActiveLovaza 1 GM CazdjenDtyp85/08/2022 ActivedexAMETHasone Sodium Phosphate 4 MG/ML AmwjxjjzGzwtnvvre72/08/2022ctive Social History Social History Additional DetailsCategorySocial InfoOptionsDetailsMigrated Social History Migrated Social HistoryTobacco Years: Current every day smoker 07/06/2021,Smoking Status: 14 07/06/2021 Plan Of Treatment No Information Insurance Providers Payer Name Payer Address Payer Phone Subscriber Number Group Number Insured Name Patient Relationship to Insured Coverage Start Date Coverage End Date Friday [employer] Plans [place] [address] DARRELL MORAN [phone] [id number], [id number] - patient is the insured
--- OUTSIDE RECORDS SUMMARY | 2025-04-11 11:50 | XMS_ITS | CCD ---
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 Name Role Phone Unavailable Primary Care Provider UnavailTIFFANIE Florez Attending Unavailable Bj Evans III Primary Care Physician NONE, XXXX Primary Care Physician Unavailab Darshan Hood Attending Unavailable Maria Luz Galicia Attending Unavailable Meño Parnell Attending Unavailable Medications Current Medications MedicationDrug Class(es)DatesSig (Normalized)Sig (Original)cyclobenzaprine hydrochloride 10 mg oral tablet (5 sources)Muscle RelaxantStart: 77-60-7582xdrp 1 tablet by mouth three times daily as needed for muscle spasmscyclobenzaprine 10 mg Tab 10 mg = 1 tab(s), Oral, TID, PRN for spasm, # 30 tab(s), Refills(s) 0, Pharmacy: [facility], 168, cm, 02/18/24 10:40:00 EDT, Height/Length Dosing, 87.5, kg, 02/18/24 10:40:00 EDT, Weight Dosing Start Date: 02/18/24 Status: Orderedibuprofen 800 mg oral tablet (1 source)Nonsteroidal Anti-inflammatory DrugStart: 25-45-5678xofy 1 tablet by mouth every eight hours as needed for painibuprofen (ADVIL;MOTRIN) 800 MG tablet Take 1 tablet by mouth every 8 hours as needed for Pain 30 tablet 1 12/31/2020 ActiveStart: 55-48-1981gvip 1 tablet by mouth every eight hours as needed for painibuprofen (ADVIL;MOTRIN) 800 MG tablet Take 1 tablet by mouth every 8 hours as needed for Pain 30 tablet 1 12/31/2020 Activemethocarbamol 750 mg oral tablet (1 source)Muscle RelaxantStart: 08-26-2023 End: 50-98-8332ntja 1 tablet by mouth three times dailyRobaxin-750 oral tablet 750 mg = 1 tab(s), Oral, TID, X 7 day(s), # 21 tab(s), Refills(s) 0, Pharmacy: [facility] 1986, 167.6, cm, 08/26/23 8:44:00 EDT, Height/Length Dosing, 84.4, kg, 248:44:00 EDT, Weight Dosing Start Date: 08/26/23 Stop Date: 09/02/23 Status: OrderedmethylPREDNISolone 4 mg oral tablet (1 source)CorticosteroidStart: 06-26-2022 End: 59-68-5802Sswryq 4 mg Tab = 1 packet(s), Oral, As Directed, as directed on package labeling, X 6 day(s), # 21tab(s), Refills(s) 0 Start Date: 06/26/22 Stop Date: 07/02/22 Status: Orderedminoxidil 50 mg/ml topical foam (2 sources)Arteriolar VasodilatorStart: 95-51-4311resrhenzc topical 5% foam 1 zee, Topical, BID, 63 gram, Refill(s) 0, [facility], 167.6, cm, 09/15/23 21:06:00 EDT, Height/Length Dosing, 88.4, kg, 09/15/23 21:06:00 EDT, Weight Dosing Start Date: 09/15/23 Status: Ordered Completed/Discontinued Medications MedicationDrug Class(es)DatesSig (Normalized)Sig (Original)dicyclomine hydrochloride 20 mg oral tablet (4 sources)AnticholinergicStart: 06-27-2011 End: 98-36-4687qwqd 1 tablet by mouth four times dailyBentyl 20 mg Tab 20 mg = 1 tab(s), Oral, QID, # 28 tab(s), Refills(s) 0 Start Date: 06/27/11 Stop Date: 07/04/11 Status: Orderednaproxen 500 mg oral tablet (8 sources)Nonsteroidal Anti-inflammatory DrugStart: 43-83-8304elfv 1 tablet by mouth twice dailynaproxen 500 mg Tab 500 mg = 1 tab(s), Oral, BID, Take one tab by mouth two times a day, # 14 tab(s), Refills(s) 0, Pharmacy: [facility] 1985, 167.6, cm, 08/26/23 8:44:00 EDT, Height/Length Dosing, 84.4, kg, 08/26/23 8:44:00 EDT, Weight Dosing Start Date: 08/26/23 Status: Ordered Problems Problem ClassificationProblemDateDocumented DateEpisodic/ChronicOther screening for suspected conditions (not mental disorders or infectious disease) (4 sources)No current problems or lxuiosvylv46-11-4175AweiwedbWwvan skin disorders (1 source)Alopecia areata; Translations: [Alopecia areata, unspecified]Onset: 77-07-0289KuthlmjmQgbnefdilqc; intervertebral disc disorders; other back problems (1 source)Lumbago with sciatica; Translations: [Lumbago with sciatica, unspecified side]Onset: 86-09-4756XehpqozsPsulzuj and strains (3 sources)Sprain of right ankle; Translations: [Sprain of unspecified ligament of right ankle, initial encounter]Onset: 90-19-6921Hczmbtsd Results Test NameValueInterpretationReference RangeFacilityED Note-Physicianon 20-48-2116YG Note-PhysicianED Note-Physician Basic Information Time Seen: Josh PARR, Terrance Karimi 02/18/2024 10:40 Chief Complaint Pt reports right shoulder pain for 2 days. 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 denies known POLO. A 43-year-old male reports to the emergency department with complaints of right- sided shoulder pain. Reports has been hurting last couple of days. Reports that he is concerned that his may be overusefrom using it at work. Reports that she is right-handed. 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 Reports about right knee pain as well. He states that no known injury. Does not take anything except some Kwame jacob, which has helped his symptoms mildly. History of Present Illness Denies any blood thinners. Denies any other injuries. Review of Systems No other aggravating or relieving factors no other associated symptoms no other prior treatments orcomplaints. Family: Reviewed and noncontributory Social: lives at [...] and Complexity of Problems Differential Diagnosis: [] [facility] Data External documents reviewed: [] My EKG [...] have positive empty can sign as well astenderness along the trapezius muscle. Obvious deformity otherwise. No tenderness to palpation of the right elbow. Due to concerns we did do x-rays of these areas. X-rays negative for any acute findings. Discussed likely strain to the patient. Patient started on NSAIDs as well as muscle relaxer. Discussed continue to rest, ice, compress, and elevate your affected joint to relieve inflammation andswelling. You may also take ibuprofen and Tylenol [...] spasm, # 30 tab(s), Refills(s) 0, Pharmacy: [facility] 1985, 168, cm, 02/18/24 10:40:00 EDT, Height/Length Dosing, 87.5, kg, 02/18/24 10:40:00 EDT, Weight Dosing naproxen, 500 mg = 1 tab(s), Oral, BID, PRN Pain, with food, # 20 tab(s), Refills(s) 0, [facility], 168, cm, 02/18/24 10:40:00 EDT, [...] 02/21/2024 EDT [address] [place] [address]: Call [address] for diagnosis based follow up Patient Education Shoulder Pain, Msep-gb-Adex Shoulder Range of Motion Exercises Elastic Bandage and RICE Therapy Attestation Patient seen and evaluated by the physician minister assistant. Attending physician was present in the emergency department and supervised care. This visit was performed by both the physician and an APC. I performed all aspects of the MDM as d (more content not included)...[facility] HospitalComment on above:Result Comment: Electronically Signed By: Josh PARR, Terrance Karimi\.br\Date and Time Signed: 02/17/2414:28 EDT\.br\Electronically Co- Signed By: Maria Luz Galicia M.D.\.flynn\Date and Time Co-Signed: 02/19/24 07:53 EDTED Clinical Summaryon [id number] Clinical SummaryED Clinical Summary [place] [id number] ED Clinical Summary Person Information Name: ELENA SALAZAR Maryanne/[facility] Age: 43 Years : 1980 Sex: Male Language: Kuwaiti PCP: NONE, XXXX Marital Status: Visit Id: [...] 02/18/2024 12:05:43 02/18/2024 12:05:43 02/18/2024 12:05:43 ADDRESS: [address] [place] [address] [address] [place] [id number] PHYS DOC NOTES: MEDICAL INFORMATION: Prescriptions Given: Medications to Continue Taking That Have Changed [facility], [address] [place], [place] [id number], [phone] START: cyclobenzaprine (cyclobenzaprine 10 mg Tab) 1 [...] times a day as needed for pain. Refills:0. Medications to Continue with No Changes Other Medications dicyclomine (Bentyl 20 mg Tab) 1 Tablets By Mouth 4 times a day for 7 Days. Refills: 0. minoxidil topical (minoxidil topical 5% foam) 1 Application Topical 2 times a day. Refills: 0. PATIENT EDUCATION INFORMATION: Instructions: Shoulder Pain, Tich-nf-Pcba; Shoulder Range of Motion Exercises; Elastic Bandage and RICE Therapy Follow up: With: Address: When: Rayray Mendez [address] [place], [place] [id number] In 3 days 02/21/2024 Comments: Call Dr for diagnosis based follow up DIAGNOSIS: Right shoulder strainNormalGre[facility] Patient Summaryon [id number] Patient SummaryED Patient Summary [address] [address] Patient Discharge Instructions Person Information Name: ELENA SALAZAR Age: 43 Years Arrival Date: 02/18/2024 10:35:11 Discharge Diagnosis: Right shoulder strain Primary Care Physician: NONE, XXXX Provider Information Primary Provider: Maria Luz Galicia M.D. [employer] Former:None The exam and treatment you received in the Emergency Department were for an urgent problem and are not intended as complete care. It is important that you follow up with a doctor, nurse practitioner,or physician?s minister assistant for ongoing care. If your symptoms become worse or you do not improve as expected and you are unable to reach your usual health care provider, you should return to the Emergency Department. We are available 24 hours a day. SALAZAR, ELENA Leslie has been given the following list of patient education materials, prescriptions and follow-up instructions: Follow-up Instructions: With: Address: When: Rayray Mendez [address] [place], [place] [id number] In 3 days 02/21/2024 Comments: Call Dr for diagnosis based follow up In the event that this physician does not participate in your insurance network, please consult with your insurance company to find a nearby participating provider. Patient Education Materials: Shoulder Pain, Aanj-ly-Wclz; Shoulder Range of Motion Exercises; Elastic Bandage and RICE Therapy A MESSAGE TO ALL PATIENTS REGARDING OPIOIDS PRESCRIPTION OPIOIDS: WHAT YOU NEED TO KNOW Prescription opioids can be used to help relieve lxurepmj-tx-jnmtcl pain and are often prescribed following a [...] and have fewer risks and side effects. Optionsmay include: ? Pain relievers such as acetaminophen, [...] unused prescription opioids: Find your community drug take- back program or Dextrys mail-back program, or flush them down the toilet, following guidance from the Food and Drug Administration (www.fda.gov/Drugs/ResourcesForYou). ? Visit www.cdc.gov/drugoverdose to learn about the risks of opioids abuse and overdose. ? If you believe you may be struggling with addiction, tell your health care (more content not included)...[facility]aritan HospitalXR Elbow 3+ Views Righton 08-47-1117JR Elbow 3+ Views RightExam Date/Time: 02/18/2024 11:19 EDT Reason for Exam: [...] GÓMEZ Technologist: MELISSA, Technical Comments Radiation Dose: Kanatalie in mGy = . DAP = .[facility]itan HospitalXR Shoulder Complete Righton 02-18-2024 XR Shoulder Complete RightExam Date/Time: 02/18/2024 11:19 EDT Reason for Exam: [...] GÓMEZ Technologist: MELISSA, Technical Comments Radiation Dose: Ka,r in mGy = . DAP = .NormalFisher Beltrami Medical CenterED Note-Physicianon [id number] Note-PhysicianBasic Information Time Seen: Terrance Moreno PA-C. 09/15/2023 [...] denies any allergies. Denies taking any medications. Reportsis not the worst of his life. Reports [...] and Complexity of Problems Differential Diagnosis: [] [facility] Data External documents reviewed: [] My EKG [...] zee, Topical, BID, 63 gram, Refill(s) 0, [facility], 167.6, cm, 09/15/23 21:06:00 EDT, Height/Length Dosing, 88.4, kg, 09/15/23 21:06:00 EDT, Weight Dosing Disposition Plan Patient Discharge Condition Stable Discharge Disposition To home Discharge Prescription List Prescriptions minoxidil topical 5% foam, 1 zee, Topical, BID Follow-up With When Contact Information Daksha CAMPOS In 3 days 09/18/2023 EDT [address] [facility] [address] [place] [id number] Business (1) Additional Instructions: Call Dr for diagnosis based follow up Patient Education Alopecia Areata, Adult(Portuguese) Alopecia Areata, Adult Attestation Patient seen and evaluated by the physician minister assistant. Attending physician was present in the emergency department and supervised care. This visit was performed by both the physician and an APC. I performed all aspects of the MDM as documented. This report was transcribed using voice recognition software. Every effort was made to ensure accuracy, however, inadvertently computerized de icer kit assembler mistakes may be present. Appropriate healthcare PPE [...] History Ongoing denies Hist (more content not included)...[facility] HospitalComment on above:Result Comment: Electronically Signed By: Terrance Moreno PA-C\.br\Date and Time Signed: 09/16/2399:06 EDT\.br\Electronically Co-Signed By: Meño Parnell DO.br\Date and Time Co-Signed: 09/16/23 00:11 EDTConsent for Treatmenton 87-26-7482Tpylylj for Treatment [id number] Harrison Community HospitalDischarge Instructionson [id number] Instructions [id number]#1.00TIFFAdams County Regional Medical Center Clinical Summaryon [id number] Clinical Summary [address] [address] ED Clinical Summary Person Information Name: ELENA SALAZAR [place]anne[place] Age: 43 Years : 1980 Sex: Male Language: Kuwaiti PCP: NONE, XXXX Marital Status: Visit Id: [...] 09/15/2023 21:51:17 09/15/2023 21:51:17 09/15/2023 21:51:17 ADDRESS: [address] [place] [address] [id number] [place] [id number] PHYS DOC NOTES: MEDICAL INFORMATION: Prescriptions Given: New Medications [facility], [address] [address] [place], [place] [id number], [phone] minoxidil topical (minoxidil topical 5% foam) 1 Application Topical 2 times a day. Refills: 0. Medications to Continue with No Changes Other Medications cyclobenzaprine (cyclobenzaprine 10 mg Tab) 1 Tablets By Mouth 3 times a day as needed Muscle pain.Refills: 0. dicyclomine (Bentyl 20 mg Tab) 1 [...] 0. PATIENT EDUCATION INFORMATION: Instructions: Alopecia Areata, Adult(Portuguese); Alopecia Areata, Adult Follow up: With: Address: When: Daksha CAMPOS [address] [place], [place] [address], [place] [address] Business (1) In 3 days 09/18/2023 Comments: Call Dr for diagnosis based follow up DIAGNOSIS: Alopecia areataNKatherine Rios Medical CenterED Patient Education Noteon [id number] Patient Education NoteImmunology Alopecia areata en los adultos Alopecia Areata, Adult La alopecia areata es lizzie afecci?n que provoca la ca?da del pelo. A lizzie persona con esta afecci?n se le puede caer el pelo en zonas del cuero cabelludo. En algunos casos, la persona puede perder todoel pelo del cuero cabelludo o de la dionte y el cuerpo. Tener esta afecci?n puede ser dif?cil emocionalmente, meseret no es peligrosa. La alopecia areata es lizzie enfermedad autoinmunitaria. Huetter significa que el sistema de defensa del [...] ? Calvicie y p?rdida del vello corporal. Huetter es poco frecuente. La alopecia areata suele [...] luzca con m?s volumen o cubra los parchescalvos si se siente a disgusto con mendoza aspecto. ? Busque psicoterapia o asesoramiento psicol?gico si le virginia lidiar con la ca?da del pelo. Pida al m?dico que le recomiende un asesor o un mj de apoyo. ? Concurra a todas las visitas de seguimiento janusz se lo haya indicado el m?dico. Huetter es importante. D?nde buscar m?s informaci?n ? [...] organismo (sistema inmunitario) ataque los fol?culos pilosos. Huetter ocasiona la ca?da del pelo. ? Tener esta afecci?n puede ser dif?cil emocionalmente, meseret no es peligro (more content not included)...[facility] Patient Summaryon [id number] Patient Summary [address] [address] Patient Discharge Instructions Person Information Name: ELENA SALAZAR Age: 43 Years Arrival Date: 09/15/2023 20:53:29 Discharge Diagnosis: Alopecia areata Primary Care Physician: NONE, XXXX Provider Information Primary Provider: Meño Parnell DO [employer] Former:None The exam and treatment you received in the Emergency Department were for an urgent problem and are not intended as complete care. It is important that you follow up with a doctor, nurse practitioner,or physician?s minister assistant for ongoing care. If your symptoms become worse or you do not improve as expected and you are unable to reach your usual health care provider, you should return to the Emergency Department. We are available 24 hours a day. MIRTHA SALAZARDO Leslie has been given the following list of patient education materials, prescriptions and follow-up instructions: Follow-up Instructions: With: Address: When: Daksha CAMPOS [address] [place], [place] [address] [address] Business (1) In 3 days 09/18/2023 Comments: Call Dr for diagnosis based follow up In the event that this physician does not participate in your insurance network, please consult with your insurance company to find a nearby participating provider. Patient Education Materials: Alopecia Areata, Adult(Portuguese); Alopecia Areata, Adult A MESSAGE TO ALL PATIENTS REGARDING OPIOIDS PRESCRIPTION OPIOIDS: WHAT YOU NEED TO KNOW Prescription opioids can be used to help relieve tfplvbel-tq-zkvind pain and are often prescribed following a [...] and have fewer risks and side effects. Optionsmay include: ? Pain relievers such as acetaminophen, [...] unused prescription opioids: Find your community drug take- back program or Dextrys mail-back program, or flush them down the toilet, following guidance from the Food and Drug Administration (www.fda.gov/Drugs/ResourcesForYou). ? Visit www.cdc.gov/drugoverdose to learn about the risks of opioids abuse and overdose. ? If you believe you may be struggling with addiction, tell your health care professiona (more content not included)...[facility] Consent for Treatmenton 65-90-1246Zmragda for Treatment [id number] Harrison Community HospitalDischarge Instructionson [id number] Instructions [id number] [facility] Medical Center Clinical Summaryon [id number] Clinical Summary [place] [address] ED Clinical Summary Person Information Name: ELENA SALAZAR [place]anne[place] Age: 42 Years : 1980 Sex: Male Language: Kuwaiti PCP: Bj Evans III, DO Marital Status: [...] 08/26/2023 09:31:37 08/26/2023 09:31:37 08/26/2023 09:31:37 ADDRESS: [address] [place] [address] [place] [id number] PHYS DOC NOTES: MEDICAL INFORMATION: Prescriptions Given: New Medications [facility], [address] [place], [place] [id number], [phone] methocarbamol (Robaxin-750 oral tablet) 1 Tablets By Mouth 3 times a day for 7 Days. Refills: 0. Medications to Continue Taking That Have Changed [facility], [address] [address] [place], [place] [address], [phone] START: naproxen (naproxen 500 mg Tab) 1 Tablets By Mouth 2 times a day. Take one tab by mouth two times a day. Refills: 0. Other Medications START: naproxen (naproxen 500 mg Tab) 1 Tablets By Mouth 2 times a day as needed for pain. Refills:0. Medications to Continue with No Changes Other Medications cyclobenzaprine (cyclobenzaprine 10 mg Tab) 1 Tablets By Mouth 3 times a day as needed Muscle pain.Refills: 0. dicyclomine (Bentyl 20 mg Tab) 1 Tablets By Mouth 4 times a day for 7 Days. Refills: 0. PATIENT EDUCATION INFORMATION: Instructions: Muscle Strain(Portuguese) Follow up: With: Address: When: Bj Evans [address] [place] [address], [facility] [place] [address] [facility] () In 3 days DIAGNOSIS: Strain of right groinNormalFisher Gabriel Medical CenterED Note-Physicianon [id number] Note-PhysicianBasic Information Time Seen: Darshan Woodson DO 08/26/2023 [...] out of his trailer. Patient denies hitting heador LOC. Patient reports persistent right groin pain [...] or worsen. I, Dr. Woodson had a vbez-gt-yuvk interaction with the patient. I personally performed [...] day(s), # 21 tab(s), Refills(s) 0, Pharmacy: [facility], 167.6, cm, 08/26/23 8:44:00 EDT, Height/Length Dosing, 84.4, kg, 08/26/23 8:44:00 EDT, Weight Dosing naproxen, 500 mg = 1 tab(s), Oral, BID, Take one tab by mouth two times a day, # 14 tab(s), Refills(s) 0, Pharmacy: [facility] 1985, 167.6, cm, 08/26/23 8:44:00 EDT, Height/Length Dosing, 84.4,kg, 08/26/23 8:44:00 EDT, Weight Dosing XR Hip 2-3 Views Right + Pelvis Disposition Plan Discharge Prescription List Prescriptions naproxen 500 mg Tab, 500 mg= 1 tab(s), Oral, BID Robaxin-750 oral tablet, 750 mg= 1 tab(s), Oral, TID Follow-up With When Contact Information Bj Evans In [address] [place] [address] [facility] (1) Additional Instructions: Patient Education Muscle Strain(Portuguese) Problem List/Past Medical History Ongoing denies Historical [...] or other acute cardiopulmonary abnormality Read By: Robert Woodson DOCone Health Alam[facility] Regionalzander Meritus Medical CenterComment on above: Result Comment: Electronically Signed By: Darshan Woodson DO\.br\Date and Time Signed: 08/26/23 09:27EDTED Patient Education Noteon [id number] Patient Education NoteOrthopedics Distensi?n muscular Muscle Strain Lizzie distensi?n muscular [...] un m?sculo y harry se estira demasiado. Huetter puede ocurrir shawn lizzie ca?da, cuando se [...] de presi?n (compresi?n) en el m?sculo lesionado. Huetter se puede hacer con lizzie f?lissa o lizzie venda el?stica. ? Elevaci?n del m?sculo lesionado. El m?dico tambi?n puede recomendarle analg?sicos. Siga estas indicaciones en mendoza casa: Si tiene lizzie f?lissa extra?ble: ? Use la f?lissa janusz se lo haya indicado el m?dico. Qu?tesela solamente janusz se lo haya indicado elm?dico. ? Controle todos los d?as la piel [...] piel se pone de color mark brillante. Huetter es muy importante. Si no puede sentir [...] solamente janusz se lo haya indicado el m?dico.El tratamiento puede incluir relajantes musculares o medicamentos para el dolor y la inflamaci?n que se maru por boca o que se aplican sobre la piel. ? Restrinja las actividades y andrew reposo del m?sculo lesionado janusz se lo haya indicado el m?dico.Posiblemente le permitan hacer movimientos suaves. ? Si le indicaron fisioterapia, andrew los ejercicios janusz se lo haya indicado el m?dico. ? No ejerza presi?n en ninguna parte de la f?lissa hasta que se haya endurecido por completo. Huetter puede tardar varias horas. ? No consuma brenden?n producto que contenga nicotina o tabaco. Estos productos incluyen cigarrillos, tabaco para mascar y aparatos de vapeo, janusz los cigarrillos electr?nicos. Si necesita ayuda para dejar de consumir estos productos, consulte al m?dico. ? Preg?ntele al m?dico cu?ndo puede volver a conducir si tiene lizzie f?lissa. ? Concurra a todas las visitas de seguimiento. Huetter es importante. ?C?mo se matt? Precaliente antes de la actividad f?gurpreet. Huetter ayuda a prevenir futuras distensiones musculares. Comun?quese [...] se aplica lizzie fuerza (more content not included)...[facility] Patient Summaryon [id number] Patient Summary [place] [id number] Patient Discharge Instructions Person Information Name: ELENA SALAZAR Age: 42 Years Arrival Date: 08/26/2023 08:36:53 Discharge Diagnosis: Strain of right groin Primary Care Physician: Bj Evans III, DO Provider Information Primary Provider: Darshan Woodson DO [employer] Former:None The exam and treatment you received in the Emergency Department were for an urgent problem and are not intended as complete care. It is important that you follow up with a doctor, nurse practitioner,or physician?s minister assistant for ongoing care. If your symptoms [...] Follow-up Instructions: With: Address: When: Bj Evans [address] [place] [address], [facility] [place] [address] [facility] (1) In 3 days In the event that this physician does not participate in your insurance network, please consult with your insurance company to find a nearby participating provider. Patient Education Materials: Maty Bravo(Portuguese) A MESSAGE TO ALL PATIENTS REGARDING OPIOIDS PRESCRIPTION OPIOIDS: WHAT YOU NEED TO KNOW Prescription opioids can be used to help relieve kfjxdicm-hf-cswhcv pain and are often prescribed following a [...] and have fewer risks and side effects. Optionsmay include: ? Pain relievers such as acetaminophen, [...] unused prescription opioids: Find your community drug take- back program or [employer] mail-back program, or flush them down the toilet, following guidance from the Food and Drug Administration (www.fda.gov/Drugs/ResourcesForYou). ? Visit www.cdc.gov/drugoverdose to learn about the risks of opioids abuse and overdose. ? If you believe you may be struggling with addiction, tell your health pet caretaker and ask for guidance or call [facility]?S National Helpline at 6-892-274-HELP. v Source: US D (more content not included)...[facility] Prescriptions/Work Noteson 53-04-7002Kwblnelbtiimt/Work Notes [id number]#1.00TIFFNoUC Medical CenterXR Hip 2-3 Views Right + Pelvison 74-80-2877RM Hip 2-3 Views Right + PelvisExam Date/Time: 08/26/2023 09:11 EDT Reason for Exam: [...] Ka,r in mGy = na DAP = [facility] RIGHT (MIN 3 VIEWS)on 33-08-0569JP ANKLE RIGHT (MIN 3 VIEWS)RIGHT ANKLE THREE VIEWS 12/31/2020 COMPARISON: None. HISTORY: [...] Signed by: Arthur Montenegro MD 12/31/20 Final resultNormalMerArnot [facility] Vital Signs Date TimeVital SignValuePerforming DlzwhicogWbirrcvz56-01-7540 10:37-0400Body sdxwufxdrgv13.96 [degF][facility]09-04-2024 10:37-0400Diastolic blood wurwxuse09 mm[Hg][facility]09-04-2024 10:37-0400Heart rate74 /[facility]Do[facility]09-04-2024 10:37-0400Respiratory rate16 /[facility]Do[facility]09-04-2024 10:37-5397DgD5% (BldA) [Mass fraction]95 %[facility]09-04-2024 10:37-0400Systolic blood pressure 133 mm[Hg][facility]04-01-2024 21:02-0400Body iyavkahugiu83.42 [degF]Meño Parnell [address] [place], [place] 6915504-01-2024 21:02-0400 Diastolic blood mm[Hg]Meño Parnell [address] [place], [place] 6915504-01-2024 21:02-0400Heart rate80 /minMayelan Soheila [address] [place], [place] 6915504-01-2024 21:02-0400 Respiratory rate18 /minMayelan Soheila [address] [place], [place] 6915504-01-2024 21:02-2639McI5% (BldA) [Mass fraction]99 %Meño Parnell [address] [place], [place] 6915504-01-2024 21:02-0400 Systolic blood ymjwkjwj330 mm[Hg]Meño Parnell [address] [place], [place] 6915503-12-2024 08:41-0400Body qumwicfpzap48.88 [degF]Darshan Woodson [address]03-12-2024 08:41-0400 Diastolic blood uelfxuul75 mm[Hg]Darshan Woodson [address]03-12-2024 08:41-0400Heart rate76 /Celia Billse [address] [place], [place] 6915503-12-2024 08:41-0400 Respiratory rate18 /Celia Woodson [address] [place], [place] 6915503-12-2024 08:41-8203IcJ8% (BldA) [Mass fraction]99 %Darshan Woodson [facility]03-12-2024 08:41-0400 Systolic blood aimvkqxq368 mm[Hg]Darshan Woodson [address] [place], [place] [address]13[address]01-11-2023 06:38-0500Body vnvvxayjrmj10.7 [degF]Blanco Griffith [address] [place], [place] 0135501-11-2023 06:38-0500 Diastolic blood aeorsqha13 mm[Hg]Blanco Griffith [address] [place], [place] [address]135501-11-2023 06:38-0500Heart rate76 /Artie Nacho [address] [place], [place] [address]135501-11-2023 06:38-0500 Respiratory rate16 /minBlanco Griffith [address] [place], [place] [address]135501-11-2023 06:38-3700JyB7% (BldA) [Mass fraction]98 %Blanco Griffith [facility]01-11-2023 06:38-0500 Systolic blood jytphlnc765 mm[Hg]Blanco Griffith [address] [place], [place] 0135507-18-2021 10:57-0400Body sznamv652.6 Ruth Miller MD Work Phone: [employer] Work Phone: 1(948) 891-187507-18-2021 10:57-0400Body mass index (BMI) [Ratio] 31.23 kg/x3RioehauidudTiffanie Miller MD Work Phone: [employer] Work Phone: 1(672) 555-351207-18-2021 10:57-0400Body zqdemnoyzfp16.29 [degF] Tiffanie Miller MD Work Phone: [employer] Work Phone: 1(498) 894-880007-18-2021 10:57-0400Body .77 kgTiffanie Miller MD Work Phone: [facility] [employer] Work Phone: 1(503) 432-121207-18-2021 10:57-0400Diastolic blood erzqfgqz66 mm[Hg] Tiffanie Miller MD Work Phone: [facility] [employer] Work Phone: 1(983) 597-557207-18-2021 10:57-0400Heart rate98 /minTiffanie Miller MD Work Phone: [facility] [employer] Work Phone: 1(692) 399-428907-18-2021 10:57-0400Respiratory rate16 /min Tiffanie Miller MD Work Phone: [facility] [employer] Work Phone: 1(597) 759-124307-18-2021 10:57-7499GzW1% (BldA) [Mass fraction]96 % Tiffanie Miller MD Work Phone: [facility] [employer] Work Phone: 1(845) 927-798007-18-2021 10:57-0400Systolic blood yqcjpptc526 mm[Hg] Tiffanie Miller MD Work Phone: [facility] [employer] Work Phone: Encounters Encounter DateEncounter TypeCare ProviderFacilityStart: 02-18-2024 End: 17-29-7699Mtpaefntl department patient visitAstrit Thai [facility] Start: 81-16-8845qosbchuadcThgb ParenteFacility:HC Detention Start: 09-15-2023 End: 44-18-8576Okwgthxvv department patient visitMeño Bianchi Giovannajay [facility] Start: 08-26-2023 End: 88-51-6735Gzotcenjq department patient visitJoeliceo Woodson [facility] Start: 06-26-2022 End: 09-13-3258Zqqgoinhd department patient visitBlanco Tamez Nacho [facility] Start: 12-31-2020 End: 77-01-2211Umqczfbql department patient visitCHBHAVESH MILLERClermont County Hospitaltart: 12-31-2020 End: 86-95-9287Jheivjdev department patient visitTiffanie Miller MD Work Phone: [facility] EDComment on above:Sprain of right ankle, unspecified ligament, initial encounter (Primary Dx) Procedures DateProcedureProcedure DetailPerforming ClinicianStart: 63-41-1645Bnthv ankle complete minimum 3 viewsChbhavesh Miller MD Work Phone: Plan of Treatment DateCare ActivityDetailAuthorStart: 83-42-4651Scqqxzddg vaccinationFlu vaccine (#1)[employer] Phone: start: 04-28-6863Ixjiqium screenDiabetes screenMemorial Health System Selby [facility] HospitalSenseonics Work Phone: start: 36-22-3722Rxjqd panelLipid screenMemorial Health System Selby [facility] HospitalSenseonics Work Phone: start: 00-08-7063JHdX/Tdap/Td vaccine (1 - Tdap) DTaP/Tdap/Td vaccine (1 - Tdap)[employer] Phone: start: 34-04-4553SWY screeningHIV screenMemorial Health System Selby General HospitalSenseonics Work Phone: start: 20-96-7897EHAKQ-19 Vaccine (1)COVID-19 Vaccine (1)[employer] Phone: start: 50-62-8333Rixlvvlco vaccine (1 of 2 - 2-dose childhood series)Varicella vaccine (1 of 2 - 2-dose childhood series)[employer] Phone: start: 75-93-8733Ubifuifww C screeningHepatitis C screenMemorial Health System Selby [facility] HospitalSenseonics Work Phone: XR ANKLE RIGHT (MIN 3 VIEWS)XR ANKLE RIGHT (MIN 3 VIEWS) Imaging STAT 12/31/2020 11:43 AM EDDiscoverly Phone: Payers DatePayer CategoryPayerPolicy [id number] [id number] [id number] 2024Self-[id number] [id number] [id number] 2..[id number] Social History DateTypeDetailFacilityStart: 69-87-0608Skcquyh smoking status NHISNever smoker [employer] Phone: start: 25-58-8520Mdwmcdr use and exposureNever used i[employer]quareStart: 89-08-6095Xhelfus intakeLifetime non-drinker (finding)[employer] Phone: start: 70-18-1599Opccmrw SDOH Alcohol Wvlxlxwrj2YrndvQwickly Phone: start: 27-23-3669Uac Assigned At BirthNot on [employer] Phone: exposure to SARS-CoV-2 (event)Not [facility] [employer] Tobacco smoking statusNo Smoking Status EnteredThe Christ Hospitalex Assigned At BirthMalOhioHealth [facility] Functional Status VmbhNygiigfspiKsqujmLezjrdfb71-33-9023Ppnmnjybpl StatusN/[facility]04-01-2024Functional StatusN/[facility]03-12-2024 Functional StatusN/AFkeiko [facility] HospitalMzeqis62-18-0621Sevhgmnznh StatusN/A Richard [facility] Clinical Notes 06-26-2022 to 02-18-2024 Note Date & SjcxXlvmTukuqyhw61-63-7230 Hospital Discharge instructions Patient Education 02/18/2024 12:05:43 Shoulder Pain, Fgwz-wm-Gjcg Shoulder Pain Many things can cause shoulder [...] on if it does not help with thepain. ?If your skin turns bright red, take off the ice right away to prevent skin damage. The risk of damage is higher if you cannot feel pain, heat, or cold. Squeeze a soft ball or a foam pad as much as possible. This prevents swelling in the shoulder. It also helps to strengthen the arm. General instructions Take vhgk-djw-lgpgnoy and prescription medicines only as told by [...] provider. Document Revised: 01/03/2023 Document Reviewed: 01/03/2023 [employer] Patient Education 2023 [employer]. 02/18/2024 12:05:43 Shoulder Range of Motion Exercises Shoulder Range of Motion Exercises Shoulder range of motion (ROM) exercises are done to keep the shoulder moving freely or to increasemovement. They are recommended for people who have shoulder pain or stiffness or who are recoveringfrom a shoulder surgery. Ask your health care [...] side. Bend your arm to about a 90- degree angle (right angle) at the elbow, and [...] you at the level of your waist. Thewand should be pointing straight up and down [...] Over time, bring your arm up to m37-gelbqc angle (right angle) out to the side. [...] provider. Document Revised: 07/23/2022 Document Reviewed: 07/23/2022 [employer] Patient Education 2023 [employer] 02/18/2024 12:05:43 Elastic Bandage and RICE Therapy [...] the healing process. Rest usually involves limiting yournormal activities and not using the injured part of your body. Generally, you can return to your normal activities when your health care provider says it is okay and when you can do them without muchdiscomfort. If you rest the injury too much, it may not heal as well. Some injuries heal better with early movement instead of resting for too long. Talk with your health care provider about how long you should limit your activities and whether you should start eekze-ri-eshvdt exercises for your injury. Ice If directed, [...] injury and it does not improve after youremove the elastic bandage. Summary Elastic bandages provide [...] provider. Document Revised: 03/22/2021 Document Reviewed: 03/22/2021 [employer] Patient Education 2023 [employer]. Follow Up Care 02/18/2024 10:37:11 With:Rayray Mendez Address: [address] [place] [phone] When:02/21/2024 11:52:04 Comments:Call Dr for diagnosis based follow up [facility] 09-04-2024 NoteED Patient Education Note Orthopedics Shoulder Pain Many [...] possible. This prevents swelling in the shoulder. Italso helps to strengthen the arm. General instructions ? Take bmxl-hzf-ylxaudm and prescription medicines only as told by [...] provider. Document Revised: 01/03/2023 Document Reviewed: 01/03/2023 [employer] Patient Education ? 2023 [employer] Shoulder Range of Motion Exercises Shoulder range of motion (ROM) exercises are done to keep the shoulder moving freely or to increasemovement. They are recommended for people who have shoulder pain or stiffness or who are recoveringfrom a shoulder surgery. Ask your health care [...] arm to about a (more content not included)...[facility]04-01-2024 Hospital Discharge instructions Patient Education 09/15/2023 21:51:17 Alopecia Areata, Adult(Portuguese) Alopecia areata en los adultos Alopecia Areata, Adult La alopecia areata es lizzie afecci n que provoca la ca da del pelo. A lizzie persona con esta afecci n se le puede caer el pelo en zonas del cuero cabelludo. En algunos casos, la persona puede perder todoel pelo del cuero cabelludo o de la dionte y el cuerpo. Tener esta afecci n puede ser dif cil emocionalmente, meseret no es peligrosa. La alopecia areata es lizzie enfermedad autoinmunitaria. Huetter significa que el sistema de defensa del [...] Calvicie y p rdida del vello corporal. Huetter es poco frecuente. La alopecia areata suele [...] as. El m dico puede derivarlo a unm dico especialista en enfermedades capilares o de [...] inmunitario. No hay un lashell tratamiento para lastodas las personas con alopecia areata. Depender del [...] de apoyo o un terapeuta si tiene dificultadespara lidiar con la ca da del pelo. [...] se lo haya indicado el m dico. Huetter es importante. D nde buscar demian hidalgo informaci n National Alopecia Areata Foundation (Fundaci [...] hace que el sistema de defensa del organismo(sistema inmunitario) ataque los fol culos pilosos. Huetter ocasiona la ca da del pelo. Tener [...] m dicocualquier pregunta que tenga. Document Revised: 09/15/2020 Document Reviewed: 09/15/2020 Elsevier Patient Education 2022 [employer] 09/15/2023 21:51:17 Alopecia Areata, Adult Alopecia Areata, Adult Alopecia areata is a condition that causes hair loss. A person with this condition may lose hair onthe scalp in patches. In some cases, a [...] a specialist in hair and skin disorders (yeast culture developer). You may also have tests, including: A [...] if you are having trouble coping with hairloss. Follow these instructions at home: Medicines Apply topical creams only as told by your health care provider. Take qksu-igz-gncxwru and prescription medicines only as told by your health care provider. General instructions Learn as much as you can about your condition. Consider getting a wig or products to make hair look wilson or to cover bald spots, if you feel uncomfortable with your appearance. Get therapy or counseling if you are having a hard time coping with hair loss. Ask your health careprovider to recommend a counselor or support group. [...] provider. Document Revised: 08/15/2020 Document Reviewed: 08/15/2020 [employer] Patient Education 2022 [employer]. Follow Up Care 09/15/2023 20:54:19 With:Daksha CAMPOS Address: [address] [place], [place] [address] [place] [address]- Business (1) When:09/18/2023 21:39:33 Comments:Call Dr for diagnosis based follow up [facility]03-12-2024 Evaluation + Plan noteExtracted from: Title:ED NoteAuthor:Lucinda IRWIN Student, Romy CDate:08/26/23 Strain of right groin (S76.2 11A: Strain of adductor muscle, fascia and tendon of right thigh, initial encounter) Orders: methocarbamol, 750 mg = 1 tab(s), Oral, TID, X 7 day(s), # 21 tab(s), Refills(s) 0, Pharmacy: [facility], 167.6, cm, 08/26/23 8:44:00 EDT, Height/Length Dosing, 84.4, kg, 08/26/23 8:44:00 EDT, Weight Dosing naproxen, 500 mg = 1 tab(s), Oral, BID, Take one tab by mouth two times a day, # 14 tab(s), Refills(s) 0, Pharmacy: [facility], 167.6, cm, 08/26/23 8:44:00 EDT, Height/Length Dosing, 84.4,kg, 08/26/23 8:44:00 EDT, Weight Dosing XR Hip 2-3 Views Right + Pelvis [facility]03-12-2024 Hospital Discharge instructions Patient Education 08/26/2023 09:31:38 Muscle Strain(Portuguese) Distensi n muscular Muscle Strain Lizzie distensi n muscular es lizzie lesi n que se produce cuando un m sculo se estira m s all de mendoza dulce normal. Cuando esto sucede, por lo general, se desgarra lizzie henry a cantidad de fibras musculares.Hay jonhson tipos de distensiones musculares. Las distensiones de [...] m sculo y harry se estira demasiado. Huetter puede ocurrir shawn lizzie ca da, cuando [...] (compresi n) en el m sculo lesionado. Huetter se puede hacer con lizzie f lissa [...] piel se pone de color mark brillante. Huetter es muy importante. Si no puede sentir [...] hasta que se haya endurecido por completo. Huetter puede tardar varias horas. No consuma brenden [...] Concurra a todas las visitas de seguimiento. Huetter es importante. C mo se matt? Precaliente antes de la actividad f gurpreet. Huetter ayuda a prevenir futuras distensiones musculares. Comun [...] tenga. Document Revised: 09/18/2021 Document Reviewed: 09/18/2021 Elsevier Patient Education 2022 [employer]. Follow Up Care 08/26/2023 08:38:52 With:Bj Evans Address: [address] [place], [place] [address] [address] Business (1) When:Within 3 Day(s) [facility]01-11-2023 Evaluation + Plan noteExtracted from: Title:ED NoteAuthor:Blanco Griffith DODate:06/26/22 Acute back pain with sciatic a (M54.40: [...] 7:11:[address] Spine Lumbar w/o Contrast [facility]01-11-2023 Hospital Discharge instructions Patient Education [...] back becomes more flexible: 1.Get into a obcds-ain-namzi position on a firm surface. Keep your [...] 07/10/2005 Document Revised: 10/07/2019 Document Reviewed: 03/04/2019 [employer] Patient Education 2020 [employer]. 06/26/2022 08:48:56 Acute Pain, Adult Acute [...] Follow these instructions at home: Medicines Take pucv-tgb-jhppccp and prescription medicines only as told by [...] pain is severe. ?Do not take other bvav-enz-mhdjqdm pain medicines in addition to prescription pain [...] grains, and fresh fruits and vegetables. ?Take ncco-fyp-rlgudka or prescription medicines. ?Limit foods that are [...] or you are no longer ill. Take ospo-aok-zbzzexx and prescription medicines only as told by [...] 06/16/2016 Document Revised: 10/18/2019 Document Reviewed: 10/18/2019 [employer] Patient Education 2020 [employer]. Follow Up Care 06/26/2022 06:33:17 With:Bj Evans Address: [address] [place] [id number] [facility] (1) When:06/29/2022 08:47:45 Comments:Call the office of your primary care doctor to arrange for follow-up within the above-stated timeframe. Follow-up with your primary care doctor about this ED visit. You should review your labs, imaging, and diagnoses from this ED visit with your primary care physician. If you were prescribed medications you should discuss possible side-effects and drug interactions with your pharmacist. Call [facility] or go to the nearest Emergency Department if you develop any new or worsening symptoms.Seek immediate medical attention if you develop: increasing pain, numbness, tingling, weakness, loss of motion inyour arms or legs, loss of control of your urine or stool, fever, abdominal pain, chest pain, shortness of breath, or any new or worsening symptoms. [facility] CenterEvaluation + Plan noteExtracted from:Title:ED Note Author:Terrance Moreno PA-C.Date:09/16/23 Alopecia areata (L63.9: Alop ecia areata, unspecified) Orders: minoxidil topical, 1 zee, Topical, BID, 63 gram, Refill(s) 0, [facility], 167.6, cm, 09/15/23 21:06:00 EDT, Height/Length Dosing, 88.4, kg, 09/15/23 21:06:00 EDT, Weight Dosing [facility]* Diagnosis Sprain of right ankle, unspecified ligament, initial encounter- Primary documented in this encounter [employer] Phone: Hospital course Narrative No data available for this section [facility]* Attachments The following attachments cannot be sent through Care Everywhere. * Ankle Sprain (Kuwaiti) * RICE: General Info (Kuwaiti) documented in this encounterMemorial [facility] HospitalBluFrog Path [facility] Phone: progress note No data available for this section [facility] Summary Purpose Family History No Family History Records Found No data available for this section No data available for this section No data available for this section No Family History Records Found Advance Directives No Advanced Directives Records FoundNo Advanced Directives Records Found Additional Source Comments Reason for Visit (unrecogniz ed section and content) ReasonCommentsJoint Swelling tripped going down 2 steps last night Ordered Prescriptions (unrec ognized section and content) PrescriptionSigDispensedRefillsStart DateEnd Date ibuprofen (ADVIL;MOTRIN) 800 MG tablet Take 1 tablet by mouth every 8 hours as needed for Pain 30 tablet (unrecognized sect ion and content) No Status Records FoundNo Status Records Found INFORMATION SOURCE (unrecogn ized section and content) DATE CREATED AUTHOR 12/31/2020 [facility] DATE CREATED AUTHOR AUTHOR'S ORGANIZ ATION 02/23/2024 [facility] Patient Care team informatio n (unrecognized section and content) Personnel Name: Bj Evans III, DO Address: Address: [address] [place] [address] Personnel Name: Bj Evans III, DO Address: Address: [address] [place] [address] Personnel Name: NONE, XXXX Address: Address: [facility] Personnel Name: NONE, XXXX Address: Address: [facility] FOR RECORDS PERTAINING TO PATIENTS WHO ARE [...] BE BASED ON THE PRIMARY CLINICAL RECORDS. [facility] CenterVari[facility]. provides no warranty or guarantee of the accuracy or completeness of information in this document.
== END 2025-04-11 11:28 | disposition home or self-care (01) ==
PROVIDERS: Emergency Provider Emergency Medicine
DX: G25.81 Restless legs syndrome (principal)
CPT/HCPCS: 99281